=== PATIENT | male | born 1935 | race Caucasian/White ===

== ENCOUNTER 2020-06-15 22:49 | Inpatient (IN) | payer MEDICARE, MEDICAID ==
[~2020-06-15] VITALS: Ht 185 cm; Wt 74.2 kg
--- NOTE | 2020-06-16 02:04 | NUR ---
JUANY ZEPEDA admitted to room CU10-1, with an admitting diagnosis of CHF, COPD, PNA on 06/16/20 from [facility], accompanied by EMS staff.JUANY ZEPEDA introduced to surroundings, call light, bed controls, phone, TV, temperature control, lights, meal times, smoking policy, visitor policy, side rail policy, bathrooms and showers. Patient Rights given to patient in the handbook. JUANY ZEPEDA verbalizes understanding that [facility] is not responsible for the loss or damage to any personal effects or valuables that are kept in the patients possession during their hospitalization. The following Patient Care Plans were discussed with the pt: Discharge Planning, activity,diet, and admission information. JUANY ZEPEDA verbalizes understanding of Interdisciplinary Patient Education. Patient and/or family were informed about the Rapid Response Team and its purpose.
[2020-06-16 02:37] LABS: ABG OXYGEN SATURATION 94 % (94-100); ABG PCO2 33 MMHG (35-45); ABG PH 7.45 (7.37-7.43); ABG PO2 63 MMHG (79-93); ABG TCO2 23.4 MMOL/L (21.0-31.0)
[2020-06-16 02:39] LABS: ALLENS TEST YES-POS; INSPIRED O2 15L; PATIENT TEMP 36.8; VENTILATOR NO
[2020-06-16 03:17] VITALS: BP 141/65
[2020-06-16 03:17] LABS: BASOPHILS % (AUTO) 0 % (0-10); EOSINOPHILS % (AUTO) 0 % (0-10); HEMATOCRIT 26 % (40-54); HEMOGLOBIN 8.7 g/dL (13.3-17.7); LYMPHOCYTES # (AUTO) 0.7 10^3/uL (1.0-4.0); LYMPHOCYTES % (AUTO) 9 % (12-44); MEAN CORPUSCULAR HEMOGLOBIN 34 pg (25-34); MEAN CORPUSCULAR HGB CONC 34 g/dL (32-36); MEAN CORPUSCULAR VOLUME 100 fL (80-99); MEAN PLATELET VOLUME 9.8 fL (9.0-12.2); MONOCYTES # (AUTO) 0.1 10^3/uL (0.0-1.0); MONOCYTES % (AUTO) 1 % (0-12); NEUTROPHILS # (AUTO) 7.2 10^3/uL (1.8-7.8); NEUTROPHILS % (AUTO) 89 % (42-75); PLATELET COUNT 166 10^3/uL (130-400); WHITE BLOOD COUNT 8.1 10^3/uL (4.3-11.0)
[2020-06-16 03:26] VITALS: BP 141/65
[2020-06-16 03:31] LABS: ALBUMIN 3.5 GM/DL (3.2-4.5); POTASSIUM 4.1 MMOL/L (3.6-5.0)
[2020-06-16 03:32] LABS: CALCIUM 8.4 MG/DL (8.5-10.1)
[2020-06-16 03:34] LABS: TOTAL PROTEIN 6.9 GM/DL (6.4-8.2)
[2020-06-16 03:37] LABS: CREATININE SERUM 1.98 MG/DL (0.60-1.30); PHOSPHORUS 2.5 MG/DL (2.3-4.7)
[2020-06-16 03:40] LABS: MAGNESIUM 2.1 MG/DL (1.6-2.4)
--- NOTE | 2020-06-16 04:15 | NUR ---
Critical Troponin called to in E ICU, order to call legal examiner. Dr Woods notified. Order for Plavix 75mg and Aspirin 81mg now if okay with Dr Villanueva. Call to Dr Villanueva, she does NOT want to administer Asa and Plavix at this time. Order to FOB stools.
[2020-06-16] MEDS: POTASSIUM CL 10MEQ/50ML IVPB 50 ML IV SCH (05:55)
[2020-06-16] MEDS: MAGNESIUM 1 GM/100 ML IVPB 100 ML IV SCH (05:55)
[2020-06-16] MEDS: KCL 20 MEQ TAB (K-DUR) PO SCH (05:55)
--- NOTE | 2020-06-16 06:24 | Diagnostic Imaging Report ---
INDICATION: Dyspnea. No previous for comparison. FINDINGS: There is consolidated infiltrate in the right lower lobe. There are increased interstitial and groundglass infiltrates throughout both lungs. The heart is enlarged. Median sternotomy changes. Small bilateral pleural effusions. IMPRESSION: 1. Findings are consistent with mild congestive failure with superimposed right lower lobe pneumonia. Dictated by: Dictated on workstation # [id number]
--- NOTE | 2020-06-16 06:59 | Pulmonary Consultation ---
History of Present Illness History of Present Illness Date Seen by Provider: Jun 16, 2020 Time Seen by Provider: 06:58 Date of Admission Allergies and Home Medications Allergies Coded Allergies: Jyscklr-Sfa-Bnk Reductase Inhibitor (Verified Allergy, Severe, Break soft tissue down, 06/16/20) Past Wxpyrgo-Uehejg-Wojshu Hx Immunizations Up To Date Date of Pneumonia Vaccine: Apr 27, 2016 Date of Influenza Vaccine: May 28, 2020 Family Medical History Cardiovascular disease 19 FATHER, , Onset:Unknown Dementia G8 BROTHER, Onset:Unknown FH: stroke G8 SISTER, , Onset:Unknown Sepsis Event Evaluation Height, Weight, BMI Height: '" Weight: lbs. oz. kg; 21.32 BMI Method: Exam Exam Vital Signs Date Time Temp Pulse Resp B/P (MAP) Pulse Ox O2 Delivery O2 Flow Rate FiO2 06/16/20 06:00 65 140/63 95 NIV Bilevel 40.00 06/16/20 05:00 67 158/72 96 NIV Bilevel 40.00 06/16/20 04:00 63 132/63 96 NIV Bilevel 40.00 06/16/20 03:44 NIV Bilevel 40.00 06/16/20 03:36 NIV Bilevel 50.00 06/16/20 03:35 NIV Bilevel 60.00 06/16/20 03:26 64 14 99 06/16/20 03:17 70 97 06/16/20 03:00 80 164/75 94 OxyMask 15.00 06/16/20 02:45 71 132/63 94 OxyMask 15.00 06/16/20 02:40 95 OxyMask 10.00 06/16/20 02:30 67 138/66 95 OxyMask 15.00 06/16/20 02:15 73 139/67 91 OxyMask 15.00 06/16/20 02:11 75 06/16/20 02:00 36.8 74 142/78 OxyMask 15.00 I & O 06/16/20 07:00 Intake Total 0 ml Output Total 950 ml Balance -950 ml Height & Weight Height: '" Weight: lbs. oz. kg; 21.32 BMI Method: Capillary Refill: Less Than 3 Seconds Results Lab Laboratory Tests 06/16/20 02:45 JACKIE LEWIS DO Jun 16, 2020 06:59
[2020-06-16] MEDS ORDERED: RT-ALBUTEROL INHALER HFA (VENTOLIN HFA) 18 GM IH SCH (09:00)
--- NOTE | 2020-06-16 09:20 | History & Physical-Hospitalist ---
OJRJEGINNA, 06/16/20 0920: History of Present Illness HPI/Chief Complaint is an 85-year-old male who is a direct admit to [facility] from the [place], [place] ED for increasing shortness of breath which has been happening for "a while". He was recently inpatient at [facility] in [place], [place] on 06/07 for acute CHF exacerbation and chest pain. Patient was unable to answer questions due to being on BiPAP. Could only nod yes/no to questioning. Per [facility] records, he was treated at [facility] for the exacerbation with Lasix and tolerated well. While there, he underwent cardiac catheterization done on 06/01/2020 with balloon angioplasty to the VG to the RCA. Source: patient, RN/, old records Date Seen 06/16/20 Time Seen by a Provider: 08:30 Attending Physician Ann Villanueva MD PCP Referring Physician Date of Admission Jun 16, 2020 at 02:04 Home Medications & Allergies Home Medications Reviewed patient Home Medication Reconciliation performed by pharmacy medication reconciliations division order technician and/or nursing. Patients Allergies have been reviewed. Allergies Allergies Coded Allergies Ryooyuh-Tdt-Llk Reductase Inhibitor (Verified Allergy, Severe, Break soft tissue down, 06/16/20) Past Ekdbreu-Usngmd-Eyqjnd Hx Patient Social History Alcohol Use: Occasionally Uses (2 cans/week) Alcohol Beverage of Choice: Beer Recreational Drug Use: Yes Drug of Choice: hx of methamphetamine per [facility] report Smoking Status: Current Everyday Smoker Immunizations Up To Date Date of Pneumonia Vaccine: Apr 27, 2016 Date of Influenza Vaccine: May 28, 2020 Past Medical History Surgeries: Abdominal (hernia repair, unknown location), CABG, Coronary Stent Respiratory: COPD Cardiac: Atrial Fibrillation (on Eliquis), Coronary Artery Disease, Hypertension, Valvular Heart Disease (aortic stenosis per [facility]) HFpEF CKD4 Family History Cardiovascular disease 19 FATHER, , Onset:Unknown Dementia G8 BROTHER, Onset:Unknown FH: stroke G8 SISTER, , Onset:Unknown Heart Disease (2 brothers, 1 with [place]), Cancer (lung cancer in mother) Review of Systems Constitutional: No malaise, No weakness EENTM: nose congestion; No throat pain Respiratory: cough, short of breath Cardiovascular: No chest pain, No palpitations Gastrointestinal: No abdominal pain, No nausea, No vomiting Genitourinary: No dysuria, No hematuria Musculoskeletal: joint pain; No muscle pain Skin: No dryness, No rash Psychiatric/Neurological: Denies Numbness, Denies Tingling Physical Exam Physical Exam Vital Signs Vital Signs - First Documented 06/16/20 06/16/20 06/16/20 06/16/20 02:00 02:15 03:26 09:00 Temp 36.8 Pulse 74 Resp 14 B/P (MAP) 142/78 Pulse Ox 91 O2 Delivery OxyMask O2 Flow Rate 15.00 FiO2 40 Capillary Refill : Less Than 3 Seconds Height, Weight, BMI Height: '" Weight: lbs. oz. kg; 21.32 BMI Method: General Appearance: WD/WN, Chronically ill, Mild Distress Eyes: Bilateral Eye PERRL, Bilateral Eye EOMI HEENT: No Pale Conjunctivae (L), No Pale Conjunctivae (R) Neck: Non Tender, Supple Respiratory: Lungs Clear, Normal Breath Sounds Cardiovascular: Regular Rate, Rhythm, Normal Peripheral Pulses, Systolic Murmur (aortic stenosis) Gastrointestinal: Normal Bowel Sounds, Non Tender, Soft Extremity: Normal Capillary Refill, No Pedal Edema Neurologic/Psychiatric: Alert, Oriented x3, Normal Mood/Affect Skin: Normal Color, Warm/Dry Results Results/Procedures Labs Laboratory Tests 06/16/20 02:45 Patient resulted labs reviewed. Imaging: Reviewed Imaging Report Imaging Date of Exam:06/16/20 CHEST 1 VIEW, AP/PA ONLY INDICATION: Dyspnea. No previous for comparison. FINDINGS: There is consolidated infiltrate in the right lower lobe. There are increased interstitial and groundglass infiltrates throughout both lungs. The heart is enlarged. Median sternotomy changes. Small bilateral pleural effusions. IMPRESSION: 1. Findings are consistent with mild congestive failure with superimposed right lower lobe pneumonia. Dictated on workstation # [id number] Dict: 06/16/20621 Trans: 06/16/20 0623 ANITRA [id number] Interpreted by: MICHELLE LANZA MD Electronically signed by: Assessment/Plan Assessment and Plan 1. Acute respiratory failure secondary to COPD exacerbation, overlying RLL pneumonia, and acute CHF exacerbation * Patient requiring BiPAP with FiO2 40%, currently satting mid-90s * Baseline O2 of 4L NC * Started on albuterol Q2H PRN and fluticasone * Received azithromycin and rocephin at [facility] and will restart here * CXR revealed mild congestive failure with RLL pneumonia * Pulmonology consulted, appreciate their assistance * Cardiology consulted, appreciate their assistance * COVID negative * Flu negative * Starting lasix to diurese * Daily weights 2. Elevated troponin and coronary artery disease * Troponin at [facility] 0.507 * Trended while here -- 0.461, 0.514 * EKG revealed NSR at [facility] * Cardiology will be consulted, appreciate their assistance * Stop ASA and plavix due to anemia and possible GI bleed 3. Paroxysmal atrial fibrillation * CHADsVASc 5 * HASBLED 4 * On Eliquis BID, will hold due to anemia and possible GI bleed * Tele * Consulting cardiology as above, appreciate their assistance 4. HFpEF, EF 55% * Per [facility] history, patient has HFpEF 55% on recent echo 06/01/2020 * Cardiology reports from recent [facility] hospitalization * Echo ordered 5. Hypertension * Holding home medications 6. CKD4 * Hx revealed CKD4 per [facility] * GFR here 33 * Renally dose all medications * Avoid nephrotoxic agents Diet: npo FULL CODE PPx: holding Eliquis, SCDs for now Clinical Quality Measures DVT/VTE Risk/Contraindication: Risk Factor Score Per Nursin RFS Level Per Nursing on Admit: 4+=Very High MARIEL LAZO MD 06/16/20 1436: Past Uwyddih-Tvjerf-Hqthpx Hx Past Med/Social Hx: Reviewed Nursing Past Med/Soc Hx Family History Cardiovascular disease 19 FATHER, , Onset:Unknown Dementia G8 BROTHER, Onset:Unknown FH: stroke G8 SISTER, , Onset:Unknown Assessment/Plan Admission Diagnosis Acute respiratory failure Admission Status: Inpatient Order (span 2 midnights) Reason for Inpatient Admission: see below Assessment and Plan Pt was admitted for multifactorial respiratory failure. He is currently on BiPAP and doing well. Will continue IV abx, add IV diuresis. Cardiology and Pulm consulted. Echo pending. Monitor closely. Given history of severe aortic stenosis, CAD s/p CABG with recent angioplasty, and acute respiratory failure prognosis is guarded. I did discuss goals of care with patient and he reports he would like to remain a Full Code. Diagnosis/Problems Diagnosis/Problems (1) Acute respiratory failure Qualifiers: Respiratory failure complication: hypoxia Qualified Codes: J96.01 - Acute respiratory failure with hypoxia (2) CAD (coronary artery disease) Status: Acute Qualifiers: Coronary Disease-Associated Artery/Lesion type: bypass graft [place] vs. transplanted heart: [place] heart Associated angina: without angina Qualified Codes: I25.810 - Atherosclerosis of coronary artery bypass graft(s) without angina pectoris (3) CKD (chronic kidney disease) Status: Chronic Qualifiers: Chronic kidney disease stage: stage 4 (severe) Qualified Codes: N18.4 - Chronic kidney disease, stage 4 (severe) (4) Counseling regarding end of life decision making Status: Acute (5) Essential (primary) hypertension Status: Chronic (6) NSTEMI (non-ST elevated myocardial infarction) Status: Acute Supervisory-Addendum Brief Verification & Attestation Participated in pt care: history, MDM, physical Personally performed: exam, history, MDM, supervision of care Care discussed with: Medical Student Procedures: n/a Results interpretation: Verified all documentation Verification and Attestation of Medical Student E/M Service A medical student performed and documented this service in my presence. I reviewed and verified all information documented by the medical student and made modifications to such information, when appropriate. I personally performed the physical exam and medical decision making. Mariel Lazo, Jun 16, 2020,14:40 GINNA RECINOS, Jun 16, 2020 09:20 MARIEL LAZO MD Jun 16, 2020 14:36
[2020-06-16] MEDS ORDERED: AZITHROMYCIN INJECTION 500 MG in NS (IVPB) 250 ML IV ONE (10:15)
[2020-06-16] MEDS ORDERED: FUROSEMIDE 40 MG/4 ML INJ (LASIX) IVP ONE (10:45)
[2020-06-16] MEDS: cefTRIAXone FOR IV USE 1,000 MG in WATER (STERILE) FOR INJECTION 10 ML IV SCH (10:59)
[2020-06-16 11:04] VITALS: BP 148/71
[2020-06-16] MEDS: RT-ALBUTEROL INHALER HFA (VENTOLIN HFA) 18 GM IH SCH ×4 (11:04→21:01)
[2020-06-16] MEDS ORDERED: RT-ALBUTEROL INHALER HFA (VENTOLIN HFA) 18 GM IH PRN (12:00)
[2020-06-16 12:15] LABS: BILIRUBIN,URINE NEGATIVE (NEGATIVE); CLARITY,URINE CLEAR; COLOR,URINE YELLOW; GLUCOSE, URINE (UA) NEGATIVE (NEGATIVE); KETONES,URINE NEGATIVE (NEGATIVE); LEUKOCYTE ESTERASE ,URINE NEGATIVE (NEGATIVE); NITRITE,URINE NEGATIVE (NEGATIVE); PH,URINE 5.5 (5-9); PROTEIN,URINE 1+ (NEGATIVE)
[2020-06-16 12:28] LABS: BACTERIA,URINE TRACE /HPF; SQUAMOUS EPITHELIAL CELL,UR 0-2 /HPF
--- NOTE | 2020-06-16 12:46 | Consultation-Cardiology ---
HPI-Cardiology Cardiology Consultation Date of Consultation 06/16/20 Date of Admission Time Seen by Provider: 08:30 Indication: Chest pain, dypsnea HPI Patient is an 85 y/o male with hisotry of CAD with CABG, PAF, , oxygen dependent COPD. Transferred from [place], [place] with complaints and chest pain and increased dyspnea. Patient was hospitalized earlier this month at [facility]. [facility] rtial records from [facility] show patient was there with AE COPD, chest pain. Underwent cardiac catheterization done on 06/01/2020 with balloon angioplasty to the VG to the RCA. Reports he was improving at home, and then developed chest pain and increased dyspnea last night. W/u done showing RLL pneumonia, elevated BNP, mildly elevated troponin. Underwent 2D Echo done at [facility] showing severe and planning to undergo valve replacement with Dr. Smallwood in the near future. Currently denies any chest pain. Continues to have dyspnea and is currently on Bipap. 85 years old gentleman with history of coronary artery disease, CABG, recent intervention with laser atherectomy and balloon angioplasty to the vein graft to the right coronary artery, severe aortic valve stenosis and severe mitral regurgitation with congestive heart failure. Started to have increase in shortness of breath and reported some chest discomfort. Came into the emergency room and admitted, was noted to have pneumonia and in respiratory failure maintained on BiPAP at this point. On my evaluation he denied any active chest pain, still having mild dyspnea but reporting significant improvement. Denied any fever or chills. No syncope or near syncopal episodes Home Medications & Allergies Allergies: Coded Allergies: Zbtssjj-Tui-Ydm Reductase Inhibitor (Verified Allergy, Severe, Break soft tissue down, 06/16/20) Home Medication List Reviewed: Yes DBA-Hqhlym-Yycxhf Hx Patient Social History Marital Status: Alcohol Use: Occasionally Uses (2 cans/week) Recreational Drug Use: Yes Drug of Choice: hx of methamphetamine per [facility] report Smoking Status: Current Everyday Smoker Immunizations Up To Date Date of Pneumonia Vaccine: Apr 27, 2016 Date of Influenza Vaccine: May 28, 2020 Past Medical History CAD, PAF, COPD, , CKD, HTN, HLP Family Medical History Significant Family History: Heart Disease (2 brothers, 1 with [place]), Cancer (lung cancer in mother) Family History: Cardiovascular disease 19 FATHER, , Onset:Unknown Dementia G8 BROTHER, Onset:Unknown FH: stroke G8 SISTER, , Onset:Unknown Review of Systems-General Review of Systems Constitutional: see HPI, malaise, weakness EENTM: see HPI, no symptoms reported, nose congestion; No throat pain Respiratory: see HPI, cough, dyspnea on exertion; No hemoptysis; orthopnea; No phlegm; short of breath; No stridor, No wheezing, No other Cardiovascular: see HPI, chest pain; No edema; Hx of Intervention; No palpitations, No syncope; vascular heart diseas; No other Gastrointestinal: see HPI; No abdominal pain, No nausea, No vomiting Genitourinary: see HPI; No dysuria, No hematuria Musculoskeletal: see HPI, joint pain; No muscle pain Skin: see HPI; No dryness, No rash Psychiatric/Neurological: See HPI; Denies Numbness, Denies Tingling Reviewed Test Results Reviewed Test Results Lab Laboratory Tests 06/16/20 02:25: Blood Gas Puncture Site RIGHT RADIAL, Blood Gas Patient Temperature 36.8, Arterial Blood pH 7.45H, Arterial Blood Partial Pressure CO2 33L, Arterial Blood Partial Pressure O2 63L, Arterial Blood HCO3 22L, Arterial Blood Total CO2 23.4, Arterial Blood Oxygen Saturation 94, Arterial Blood Base Excess -1.0, Delbert Test YES-POS, Blood Gas Ventilator Setting NO, Blood Gas Inspired Oxygen 15L, Coronavirus 2019 (LILIYA) Negative 06/16/20 02:45: White Blood Count 8.1, Red Blood Count 2.58L, Hemoglobin 8.7L, Hematocrit 26L, Mean Corpuscular Volume 100H, Mean Corpuscular Hemoglobin 34, Mean Corpuscular Hemoglobin Concent 34, Red Cell Distribution Width 13.1, Platelet Count 166, Mean Platelet Volume 9.8, Immature Granulocyte % (Auto) 1, Neutrophils (%) (Auto) 89H, Lymphocytes (%) (Auto) 9L, Monocytes (%) (Auto) 1, Eosinophils (%) (Auto) 0, Basophils (%) (Auto) 0, Neutrophils # (Auto) 7.2, Lymphocytes # (Auto) 0.7L, Monocytes # (Auto) 0.1, Eosinophils # (Auto) 0.0, Basophils # (Auto) 0.0, Immature Granulocyte # (Auto) 0.1, Sodium Level 138, Potassium Level 4.1, Chloride Level 106, Carbon Dioxide Level 20L, Anion Gap 12, Blood Urea Nitrogen 37H, Creatinine 1.98H, Estimat Glomerular Filtration Rate 32, BUN/Creatinine Ratio 19, Glucose Level 140H, Calcium Level 8.4L, Corrected Calcium 8.8, Phosphorus Level 2.5, Magnesium Level 2.1, Total Bilirubin 1.0, Aspartate Amino Transf (AST/SGOT) 22, Alanine Aminotransferase (ALT/SGPT) 16, Alkaline Phosphatase 64, Troponin I 0.461*H, B-Type Natriuretic Peptide 2887.6H, Total Protein 6.9, Albumin 3.5 06/16/20 08:25: Troponin I 0.514*H, Procalcitonin 0.91H 06/16/20 11:00: 06/16/20 11:45: Urine Color YELLOW, Urine Clarity CLEAR, Urine pH 5.5, Urine Specific [place] 1.020, Urine Protein 1+H, Urine Glucose (UA) NEGATIVE, Urine Ketones NEGATIVE, Urine Nitrite NEGATIVE, Urine Bilirubin NEGATIVE, Urine Urobilinogen 0.2, Urine Leukocyte Esterase NEGATIVE, Urine RBC (Auto) NEGATIVE, Urine RBC NONE, Urine WBC NONE, Urine Squamous Epithelial Cells 0-2, Urine Crystals NONE, Urine Bacteria TRACE, Urine Casts NONE, Urine Mucus NEGATIVE, Urine Culture Indicated NO Microbiology 06/16/20 Influenza Types A,B Antigen (CARRIE) - Final, Complete ECG Impression ECG Initial ECG Rhythm: Normal Sinus Physical Exam Physical Exam Vital Signs Vital Signs - First Documented 06/16/20 06/16/20 06/16/20 06/16/20 02:00 02:15 03:26 09:00 Temp 36.8 Pulse 74 Resp 14 B/P (MAP) 142/78 Pulse Ox 91 O2 Delivery OxyMask O2 Flow Rate 15.00 FiO2 40 Capillary Refill : Less Than 3 Seconds Height, Weight, BMI Height: '" Weight: lbs. oz. kg; 21.32 BMI Method: General Appearance: WD/WN, Chronically ill, Mild Distress HEENT: PERRL/EOMI, TMs Normal; No Pale Conjunctivae (L), No Pale Conjunctivae (R) Neck: Non Tender, Supple Respiratory: Chest Non Tender, Crackles, Decreased Breath Sounds Cardiovascular: Regular Rate, Rhythm, Normal Peripheral Pulses, Systolic Murmur (aortic stenosis) Gastrointestinal: Normal Bowel Sounds, Non Tender, Soft Extremity: Normal Capillary Refill, No Pedal Edema Neurologic/Psychiatric: Alert, Oriented x3, Normal Mood/Affect Skin: Normal Color, Warm/Dry A/P-Cardiology Admission Diagnosis Chest pain Non-ST elevation myocardial infarction Acute respiratory failure Acute congestive heart failure Assessment/Plan Chest pain, acute non-ST elevation myocardial infarction, mild elevation in troponin level probably a combination of small vessel coronary artery disease and severe hypoxemia. Conservative management is recommended. Restart aspirin and Plavix and continue to monitor Coronary artery disease, history of CABG, status post recent laser atherectomy and balloon angioplasty to the vein graft to the right coronary artery done in [facility] earlier this month. Continue to monitor Acute respiratory failure, maintained on BiPAP, combination of congestive heart failure and possible pneumonia Congestive heart failure, acute on chronic left ventricular systolic dysfunction, started on diuretics and monitor tolerance and response. Restart home medications Severe aortic valve stenosis, severe mitral regurgitation with pulmonary hypertension, has been seen and followed with Dr. velez for possible aortic valve replacement surgery with possible mitral valve repair Paroxysmal atrial fibrillation, was on oral anticoagulation, currently on hold. Continue to monitor H&H Anemia, questionable GI bleed. Continue to monitor H&H closely, transfuse as needed Acute renal insufficiency, history of chronic kidney disease stage III. Continue to monitor renal function Patient was seen and evaluated with Rosanne, examination performed, management plan was discussed, agree with the current scribed note, I made few changes to the note using Italic font I have seen and evaluated the patient with Rosanne, note modification were done as described above Clinical Quality Measures DVT/VTE Risk/Contraindication: Risk Factor Score Per Nursin RFS Level Per Nursing on Admit: 4+=Very High ROSANNE MYERS Jun 16, 2020 12:46 BART MANN MD Jun 16, 2020 13:49
[2020-06-16] MEDS ORDERED: FUROSEMIDE 40 MG/4 ML INJ (LASIX) IVP NR (14:00)
--- NOTE | 2020-06-16 14:03 | NUR ---
THIS NURSE CLARIFIED WITH DR MANN PT IS TO GET ANOTHER 40 MG OF LAXIS IV.
[2020-06-16] MEDS: ASPIRIN E.C. 81 MG (ECOTRIN) TAB PO SCH (14:15)
[2020-06-16] MEDS: PANTOPRAZOLE 40 MG (PROTONIX) TAB PO SCH (14:15)
[2020-06-16] MEDS: CLOPIDOGREL 75 MG (PLAVIX) TABLET PO SCH (14:15)
[2020-06-16 14:52] LABS: POTASSIUM 3.9 MMOL/L (3.6-5.0)
[2020-06-16 14:54] LABS: CALCIUM 8.4 MG/DL (8.5-10.1); HEMOGLOBIN 9.2 g/dL (13.3-17.7); MEAN PLATELET VOLUME 9.9 fL (9.0-12.2); WHITE BLOOD COUNT 7.1 10^3/uL (4.3-11.0)
[2020-06-16 14:58] LABS: CREATININE SERUM 2.05 MG/DL (0.60-1.30)
[2020-06-16 15:07] VITALS: BP 152/68
[2020-06-16] MEDS: NITROGLYCERIN 0.4 MG SL TABS BTL 25'S SL PRN ×2 (15:23→15:33)
--- NOTE | 2020-06-16 15:30 | NUR ---
1506-THIS NURSE NOTIFIED DR MANN PT IS C/O CHEST PAIN 7/10 TO HIS LEFT CHEST. PT FEELS SOA. NURSE PUT THE PT BACK ON BIPAP. PT DENIES NAUSEA. BP IS 152/86 AND HIS HEART RATE IS 96. TROPONIN PENDING. ORDERS GIVEN FOR EKG AND NITRO. SEE ORDER HX. DR MANN WILL COME SEE PT. 1530-DR MANN AT BEDSIDE. DR MANN REVIEWED EKG. ORDER GIVEN FOR NITRO PASTE. SEE ORDER HX. WILL CONTINUE TO MONITOR.
[2020-06-16] MEDS: NITROGLYCERIN 2% OINT 1 GM UNIT DOSE PACKET TOP SCH ×3 (15:37→23:49)
[2020-06-16 17:37] VITALS: BP 152/68
[2020-06-16] MEDS: ADVAIR HFA 115/21 MCG INHALER 8 GM IH SCH (21:01)
--- NOTE | 2020-06-16 23:49 | NUR ---
00 dose of Nitro paste held at this time. Last administration 2.5hrs prior.
[2020-06-17] MEDS: RT-ALBUTEROL INHALER HFA (VENTOLIN HFA) 18 GM IH SCH ×6 (03:22→23:02)
[2020-06-17 03:23] VITALS: BP 135/68
[2020-06-17 03:50] LABS: ABG BASE EXCESS 0.8 MMOL/L (-2.5-2.5); ABG OXYGEN SATURATION 93 % (94-100); ABG PCO2 33 MMHG (35-45); ABG PH 7.48 (7.37-7.43); ABG PO2 62 MMHG (79-93); ABG TCO2 25.1 MMOL/L (21.0-31.0)
[2020-06-17 04:10] LABS: ALLENS TEST POS; INSPIRED O2 21%
[2020-06-17 04:11] LABS: PATIENT TEMP 36.6; VENTILATOR NO
--- NOTE | 2020-06-17 04:30 | Pulmonary Progress Note ---
LUCA GARCIA MED STUDENT 06/17/20 0430: Subjective Date Seen by a Provider: Jun 17, 2020 Time Seen by a Provider: 04:24 Subjective/Events-last exam Mr. Caal is an 85 y/o male presenting with a CC of SoB that began 2 days prior. This has happened 3 times within the past month, and is associated with his CHF. He was given Lasix previously to relieve sx. He sees Dr. Leahy at [facility] in [place] and will have a valve replacement surgery soon. The previous two times this happened he was hospitalized for 6 days and 4 days. He also admits to chest pain, which he rates at a 6-7/10 at its worst, and which hovers around 4-5/10. Pain is brought about by activity, and resting did not help. He was transferred from [facility] to [facility] yesterday. He also states that he is good about taking his medications Smoking- working on quitting, currently down to 4cig/day All: Statins- myopathy Review of Systems General: Chills Pulmonary: Other (denies SoB and wheezing) Cardiovascular: No: Chest Pain Gastrointestinal: No: Nausea Sepsis Event Evaluation Height, Weight, BMI Height: '" Weight: lbs. oz. kg; 21.32 BMI Method: Exam Exam Vital Signs Date Time Temp Pulse Resp B/P (MAP) Pulse Ox O2 Delivery O2 Flow Rate FiO2 06/17/20 04:00 66 26 115/56 92 Nasal Cannula 5.00 06/17/20 03:46 Nasal Cannula 5.00 06/17/20 03:39 NIV Bilevel 30.00 06/17/20 03:30 36.6 NIV Bilevel 21.00 06/17/20 03:23 68 17 97 30.00 06/17/20 03:00 61 17 135/68 93 NIV Bilevel 30.00 06/17/20 02:00 62 14 139/77 96 NIV Bilevel 30.00 06/17/20 01:00 64 16 131/63 97 NIV Bilevel 30.00 06/17/20 00:38 67 06/17/20 00:00 71 33 138/67 97 NIV Bilevel 30.00 06/16/20 23:00 75 24 105/81 96 NIV Bilevel 30.00 06/16/20 22:00 76 11 133/66 97 NIV Bilevel 30.00 06/16/20 21:35 NIV Bilevel 30.00 06/16/20 21:04 92 Nasal Cannula 3.00 06/16/20 21:03 92 Nasal Cannula 3.00 06/16/20 21:00 81 13 133/72 92 Nasal Cannula 4.00 06/16/20 20:00 95 14 131/66 95 Nasal Cannula 4.00 06/16/20 20:00 95 Nasal Cannula 4.00 06/16/20 19:35 36.8 98 137/70 Nasal Cannula 4.00 06/16/20 19:17 85 06/16/20 19:00 75 17 137/70 94 06/16/20 18:00 75 124/68 96 Nasal Cannula 4.00 06/16/20 17:37 36.8 92 95 30 06/16/20 17:10 92 Nasal Cannula 4.00 06/16/20 17:00 90 137/67 92 NIV Bilevel 30.00 06/16/20 16:15 36.8 06/16/20 16:00 71 128/60 96 NIV Bilevel 30.00 06/16/20 15:07 92 22 95 30.00 06/16/20 15:05 NIV Bilevel 30.00 06/16/20 15:00 94 131/61 89 Nasal Cannula 4.00 06/16/20 14:10 Nasal Cannula 4.00 06/16/20 14:00 78 161/86 95 Nasal Cannula 3.00 06/16/20 13:48 92 Nasal Cannula 4.00 06/16/20 13:20 Nasal Cannula 3.00 06/16/20 13:19 93 Nasal Cannula 3.00 06/16/20 13:00 68 152/72 97 NIV Bilevel 30.00 06/16/20 12:40 67 06/16/20 12:00 69 130/62 97 NIV Bilevel 30.00 06/16/20 12:00 37.5 06/16/20 11:04 70 15 95 30.00 06/16/20 11:00 75 132/63 93 NIV Bilevel 30.00 06/16/20 10:10 97 NIV Bilevel 30.00 06/16/20 10:00 68 142/67 96 NIV Bilevel 40.00 06/16/20 09:00 98 NIV Bilevel 40 06/16/20 09:00 67 138/84 99 NIV Bilevel 40.00 06/16/20 08:15 79 18 94 40.00 06/16/20 08:00 68 134/64 96 NIV Bilevel 40.00 06/16/20 07:00 73 139/65 96 NIV Bilevel 40.00 06/16/20 06:42 69 06/16/20 06:00 65 140/63 95 NIV Bilevel 40.00 06/16/20 05:00 67 158/72 96 NIV Bilevel 40.00 I & O 06/17/20 07:00 Intake Total 935 ml Output Total 3025 ml Balance -2090 ml Height & Weight Height: '" Weight: lbs. oz. kg; 21.32 BMI Method: General Appearance: No Apparent Distress, WD/WN, Chronically ill, Mild Distress HEENT: PERRL/EOMI, TMs Normal; No Pale Conjunctivae (L), No Pale Conjunctivae (R) Neck: Normal Inspection, Non Tender, Supple; No JVD Respiratory: Chest Non Tender, Crackles, Decreased Breath Sounds Cardiovascular: Regular Rate, Rhythm, Normal Peripheral Pulses, Systolic Murmur (aortic stenosis, 2/6) Capillary Refill: Less Than 3 Seconds Peripheral Pulses: 2+ Dorsalis Pedis (R), 2+ Left Dors-Pedis (L); 3+ Radial Pulses (R), 3+ Radial Pulses (L) Gastrointestinal: normal bowel sounds, non tender, soft, no pulsatile mass Extremity: Normal Capillary Refill, No Pedal Edema Neurologic/Psychiatric: Alert, Oriented x3, Normal Mood/Affect Skin: Normal Color, Warm/Dry Results Lab Laboratory Tests 06/16/20 02:45 06/16/20 14:35 Assessment/Plan Assessment/Plan CHF - Lasix to diurese -monitor kidney function AFib -eliquis HFpEF -planned valve replacement -F/U at [facility] scheduled Stg 3 kidney failure -GFR 32 -monitor with lasix Anemic H/H of 9.2, 27 JACKIE NARAYAN DO 06/17/20 0532: Subjective Time Seen by a Provider: 05:27 Assessment/Plan Assessment/Plan Acute on chronic respiratory failure -Continue oxygen -BiPAP PRN Systolic CHF -Lasix Oxygen dependent COPD Chest pain with NSTEMI ARF Severe Aortic stenosis HX of methamphetamine use Supervisory-Addendum Brief Verification & Attestation Participated in pt care: history, MDM, physical Personally performed: exam, history, MDM Care discussed with: Medical Student Procedures: n/a Verification and Attestation of Medical Student E/M Service A medical student performed and documented this service in my presence. I reviewed and verified all information documented by the medical student and made modifications to such information, when appropriate. I personally performed the physical exam and medical decision making. Jackie Narayan, Jun 17, 2020,05:35 LUCA GARCIA STUDENT Jun 17, 2020 04:30 JACKIE NARAYAN DO Jun 17, 2020 05:32
[2020-06-17 04:43] LABS: BASOPHILS % (AUTO) 0 % (0-10); EOSINOPHILS % (AUTO) 0 % (0-10); HEMATOCRIT 25 % (40-54); HEMOGLOBIN 8.3 g/dL (13.3-17.7); LYMPHOCYTES # (AUTO) 1.1 10^3/uL (1.0-4.0); LYMPHOCYTES % (AUTO) 10 % (12-44); MEAN CORPUSCULAR HEMOGLOBIN 34 pg (25-34); MEAN CORPUSCULAR HGB CONC 34 g/dL (32-36); MEAN CORPUSCULAR VOLUME 100 fL (80-99); MEAN PLATELET VOLUME 10.2 fL (9.0-12.2); MONOCYTES # (AUTO) 0.8 10^3/uL (0.0-1.0); MONOCYTES % (AUTO) 8 % (0-12); NEUTROPHILS # (AUTO) 8.6 10^3/uL (1.8-7.8); NEUTROPHILS % (AUTO) 81 % (42-75); PLATELET COUNT 197 10^3/uL (130-400); WHITE BLOOD COUNT 10.5 10^3/uL (4.3-11.0)
[2020-06-17 05:00] LABS: CALCIUM 8.3 MG/DL (8.5-10.1); CREATININE SERUM 2.33 MG/DL (0.60-1.30); MAGNESIUM 2.2 MG/DL (1.6-2.4)
[2020-06-17] MEDS: POTASSIUM CL 10MEQ/50ML IVPB 50 ML IV SCH (05:03)
[2020-06-17] MEDS: KCL 20 MEQ TAB (K-DUR) PO SCH (05:03)
[2020-06-17] MEDS: MAGNESIUM 1 GM/100 ML IVPB 100 ML IV SCH (05:03)
[2020-06-17] MEDS: NITROGLYCERIN 2% OINT 1 GM UNIT DOSE PACKET TOP SCH ×4 (05:15→23:43)
--- NOTE | 2020-06-17 07:38 | Diagnostic Imaging Report ---
INDICATION: Dyspnea. Compared 06/16/2020 FINDINGS: Five lobe pulmonary opacities showed improvements at the level of the right lung base and left midlung. No adverse development. Some air trapping chronic. Blunting of the left costophrenic angle is either pleural thickening or tiny left pleural effusion. Sternal wires midline. Heart size stable. IMPRESSION: While five lobe pulmonary opacities are present, overall the appearance of the chest showed mild improvements from the prior with no adverse development. Changes may reflect improvements in edema or pneumonia. Dictated by: Dictated on workstation # [id number]
[2020-06-17] MEDS: ADVAIR HFA 115/21 MCG INHALER 8 GM IH SCH ×2 (08:15→19:21)
--- NOTE | 2020-06-17 08:26 | Progress Note - Hospitalist ---
Subjective HPI/CC On Admission Date Seen by Provider: Jun 17, 2020 Time Seen by Provider: 08:20 is an 85-year-old male who is a direct admit to [facility] from the [place], [place] ED for increasing shortness of breath which has been happening for "a while". He was recently inpatient at [facility] in [place], [place] on 06/07 for acute CHF exac erbation and chest pain. Patient was unable to answer questions due to being on BiPAP. Could only nod yes/no to questioning. Per [facility] records, he was treated at [facility] for the exacerbation with Lasix and tolerated well. While there, he underwent cardiac catheterization done on 06/01/2020 with balloon angioplasty to the VG to the RCA. Subjective/Events-last exam Pt reports doing much better. Off BiPAP currently but wore it overnight. No complaints. Objective Exam Vital Signs Vital Signs Date Time Temp Pulse Resp B/P (MAP) Pulse Ox O2 Delivery O2 Flow Rate FiO2 06/17/20 07:52 35.8 06/17/20 07:00 89 18 132/70 87 Nasal Cannula 5.00 06/16/20 17:37 30 Capillary Refill : Less Than 3 Seconds General Appearance: No Apparent Distress, Chronically ill Respiratory: No Accessory Muscle Use, Decreased Breath Sounds, Other (on 5lpm ) Cardiovascular: Regular Rate, Rhythm, Systolic Murmur Extremity: No Calf Tenderness, No Pedal Edema Neurologic/Psychiatric: Alert, Oriented x3, Normal Mood/Affect Results/Procedures Lab Laboratory Tests 06/16/20 14:35 06/17/20 03:25 Patient resulted labs reviewed. Imaging: Reviewed Imaging Report Assessment/Plan Assessment and Plan Assess & Plan/Chief Complaint 1. Multifactorial acute respiratory failure secondary to COPD exacerbation with RLL pneumonia, and acute CHF exacerbation * Doing much better, transfer to the floor today * Baseline O2 of 4L NC * MAT protocol * Continue IV abx * Pulmonology consulted, appreciate their assistance * Cardiology consulted, appreciate their assistance * COVID negative * Flu negative * Responded well to Lasix, -2.4L yesterday 2. Elevated troponin and coronary artery disease * Troponin relatively stable here * Cardiology consulted, appreciate their assistance- plan for conservative measures * Continue ASA and Plavix * telemetry 3. Paroxysmal atrial fibrillation * On Eliquis BID, previously- likely needs renal dosing * Consulting cardiology as above, appreciate their assistance 4. HFpEF, EF 55% * Echo reveals EF of 45%, grade 1 diastolic dysfunction, with severe stenosis * Cardiology reports from recent [facility] hospitalization 5. Hypertension * Holding home medications 6. CKD4 * Bottle Booth Attendant 2.33, up from yesterday likely due to diuresis * Trend in AM without Lasix * Renally dose all medications * Avoid nephrotoxic agents Diet: Heart Healthy FULL CODE PPx: holding Eliquis, SCDs for now Diagnosis/Problems Diagnosis/Problems (1) Acute respiratory failure Qualifiers: Respiratory failure complication: hypoxia Qualified Codes: J96.01 - Acute respiratory failure with hypoxia (2) CAD (coronary artery disease) Status: Acute Qualifiers: Coronary Disease-Associated Artery/Lesion type: bypass graft [place] vs. transplanted heart: [place] heart Associated angina: without angina Qualified Codes: I25.810 - Atherosclerosis of coronary artery bypass graft(s) without angina pectoris (3) CKD (chronic kidney disease) Status: Chronic Qualifiers: Chronic kidney disease stage: stage 4 (severe) Qualified Codes: N18.4 - Chronic kidney disease, stage 4 (severe) (4) Counseling regarding end of life decision making Status: Acute (5) Essential (primary) hypertension Status: Chronic (6) NSTEMI (non-ST elevated myocardial infarction) Status: Acute Clinical Quality Measures DVT/VTE Risk/Contraindication: Risk Factor Score Per Nursin RFS Level Per Nursing on Admit: 4+=Very High MARIEL RYAN MD Jun 17, 2020 08:26
[2020-06-17] MEDS: AZITHROMYCIN 250 MG TAB (ZITHROMAX) PO SCH (08:54)
[2020-06-17] MEDS: CLOPIDOGREL 75 MG (PLAVIX) TABLET PO SCH (08:54)
[2020-06-17] MEDS: ASPIRIN E.C. 81 MG (ECOTRIN) TAB PO SCH (08:54)
[2020-06-17] MEDS: PANTOPRAZOLE 40 MG (PROTONIX) TAB PO SCH (08:54)
[2020-06-17] MEDS: cefTRIAXone FOR IV USE 1,000 MG in WATER (STERILE) FOR INJECTION 10 ML IV SCH (08:55)
--- NOTE | 2020-06-17 08:59 | Cardiology Progress Note ---
Subjective Date Seen by Provider: Jun 17, 2020 Time Seen by Provider: 08:55 Subjective/Events-last exam Patient is laying down in bed, feeling better today. Denied any active chest pain. Had an episode of chest pain yesterday. Currently on nasal cannula Review of Systems General: No Chills, No Night Sweats, No Fatigue, No Malaise, No Appetite, No Other HEENT: No Head Aches, No Visual Changes, No Eye Pain, No Ear Pain, No Dysphasia, No Sinus Congestion, No Post Nasal Drip, No Sore Throat, No Other Pulmonary: Dyspnea; No Cough, No Pleuritic Chest Pain, No Other Cardiovascular: No: Chest Pain, Palpitations, Orthopnea, Paroxysmal Noc. Dyspnea, Edema, Lt Headedness, Other Objective-Cardiology Exam Last Set of Vital Signs Vital Signs 06/16/20 06/17/20 06/17/20 06/17/20 17:37 07:00 07:52 08:15 Temp 35.8 Pulse 89 Resp 18 B/P (MAP) 132/70 Pulse Ox 93 O2 Delivery Nasal Cannula O2 Flow Rate 6.00 FiO2 30 Capillary Refill : Less Than 3 Seconds I&O Intake and Output 06/17/20 00:00 Intake Total 785 ml Output Total 3225 ml Balance -2440 ml Intake Oral 525 ml IV Total 260 ml Output Urine Total 3225 ml Daily Weight Change No General: Alert, Oriented X3, Cooperative HEENT: Atraumatic, PERRLA Neck: Supple, No JVD, No Thyromegaly Lungs: Normal Air Movement, Other (bilateral rhonchi) Heart: Regular Rate, Normal S1, Normal S2, Other (systolic murmur at the left sternal border) Abdomen: Normal Bowel Sounds, Soft, No Tenderness, No Hepatosplenomegaly, No Masses Extremities: No Clubbing, No Cyanosis, No Edema, Normal Pulses, No Tenderness/Swelling Skin: No Rashes, No Breakdown, No Significant Lesion Neuro: Normal Speech, Normal Tone, Sensation Intact Psych/Mental Status: Mental Status NL, Mood NL Results Lab Laboratory Tests 06/16/20 14:35 06/17/20 03:25 A/P-Cardiology Admission Diagnosis Chest pain Non-ST elevation myocardial infarction Acute respiratory failure Acute congestive heart failure Assessment/Plan Chest pain, acute non-ST elevation myocardial infarction, mild elevation in troponin level probably a combination of small vessel coronary artery disease and severe hypoxemia. Conservative management is recommended. Continue on aspirin and Plavix and monitor. Restart isosorbide. Coronary artery disease, history of CABG, status post recent laser atherectomy and balloon angioplasty to the vein graft to the right coronary artery done in [facility] earlier this month. Continue to monitor Acute respiratory failure, improving, currently on nasal cannula. Continue to monitor Congestive heart failure, acute on chronic left ventricular systolic dysfunction, started on diuretics and monitor tolerance and response. Restart home medications Severe aortic valve stenosis, severe mitral regurgitation with pulmonary hypertension, has been seen and followed with Dr. velez for possible aortic valve replacement surgery with possible mitral valve repair Paroxysmal atrial fibrillation, was on oral anticoagulation, currently on hold. Continue to monitor H&H Anemia, monitor H&H Acute renal insufficiency, history of chronic kidney disease stage III. Continue to monitor renal function Clinical Quality Measures DVT/VTE Risk/Contraindication: Risk Factor Score Per Nursin RFS Level Per Nursing on Admit: 4+=Very High BART MANN MD Jun 17, 2020 08:59
--- NOTE | 2020-06-17 10:45 | Physical Therapy Evaluation ---
PT Evaluation-General Medical Diagnosis Admission Date Jun 16, 2020 at 02:04 Medical Diagnosis: pneumonia/respiratory distress Onset Date: Jun 16, 2020 Therapy Diagnosis Therapy Diagnosis: debility/weakness Precautions Precautions/Isolations: Standard Precautions Referral Physician: [place] Reason for Referral: Evaluation/Treatment Medical History Pertinent Medical History: Atrial Fib, CABG, CAD, Heart Failure, HTN, Smoking Current History Direct admit from OSH secondary SOA Reviewed History: Yes Social History Home: Single Level Current Living Status: Other Family Prior Prior Level of Function SCALE: Activities may be completed with or without assistive devices. 2-Phlncnhmcj-khmuoao completes the activity by him/herself with no assistance from a helper. 5-Set-up or Clean-up Assistance-helper sets up or cleans up; patient completes activity. [place] assists only prior to or following the activity. 4-Supervision or Touching Assistance-helper provides verbal cues and/or touching/steadying and/or contact guard assistance as patient completes activity. Assistance may be provided throughout the activity or intermittently. 3-Partial/Moderate Assistance-helper does LESS THAN HALF the effort. [place] lifts, holds or supports trunk or limbs, but provides less than half the effort. 2-Substantial/Maximal Assistance-helper does MORE THAN HALF the effort. [place] lifts or holds trunk or limbs and provides more than half the effort. 7-Yqkmjpcxi-cdwwww does ALL the effort. Patient does none of the effort to comp lete the activity. Or, the assistance of 2 or more helpers is required for the patient to complete the activity. If activity was not attempted, code reason: 7-Patient Refused. 9-Not Applicable-not attempted and the patient did not perform the activity before the current illness, exacerbation or injury. 10-Not Attempted due to Environmental Limitations-(lack of equipment, weather restraints, etc.). 88-Not Attempted due to Medical Conditions or Safety Concerns. Bed Mobility: 6 Transfers (B,C,W/C): 6 Gait: 6 Stairs: 6 Indoor Mobility (Ambulation): Independent Stairs: Independent Prior Devices Use: None PT Evaluation-Current Subjective Patient agrees to PT. Reports he is feeling better today. Objective Patient Orientation: Normal For Age Attachments: Oxygen ROM/Strength ROM Lower Extremities bilateral LE WFL Strength Lower Extremities 4/5 grossly bilateral LE Integumentary/Posture Integumentary refer to nursing notes Bowel Incontinence: No Bladder Incontinence: No Posture WFL Neuromuscular (Tone, Coordination, Reflexes) grossly intact Sensory Vision: Functional Hearing: Functional Transfers Roll Left to Right (QC): 6 Lying to Sitting/Side of Bed(Q: 6 Sit to Stand (QC): 5 Chair/Hga-mb-Gzhxu Xfer(QC): 5 Gait Does the Patient Walk?: Yes Mode of Locomotion: Wheelchair Anticipated Mode of Locomotion: Walk Walk 10 feet (QC): 5 Distance: 20' Gait Assistive Device: None Comments/Gait Description functional gait sequence Balance Sitting Static: Normal Sitting Dynamic: Normal Standing Static: Normal Standing Dynamic: Normal Assessment/Needs 85 y.o. male, will be seen short term by skilled PT to address functional mobility to ensure safe return to home at maximum LOF. Rehab Potential: Fair PT Senior Care Goals Senior Care Goals PT Senior Care Goals Time Frame: Jun 26, 2020 Roll Left & Right (QC): 6 Sit to Lying (QC): 6 Lying-Sitting on Side/Bed(QC): 6 Sit to Stand (QC): 6 Chair/Dpd-vl-Ssiqe Xfer(QC): 6 Toilet Transfer (QC): 6 Car Transfer (QC): 6 Does the Patient Walk: Yes Walk 10 feet (QC): 6 Walk 50ft with 2 Turns (QC): 6 Walk 150 ft (QC): 6 PT Plan Problem List Problem List: Activity Tolerance Treatment/Plan Treatment Plan: Continue Plan of Care Treatment Plan: Education, Functional Activity [place], Functional Strength, Gait, Safety, Therapeutic Exercise Treatment Duration: Jun 26, 2020 Frequency: 6 times per week Estimated Hrs Per Day: .25 hour per day Time/GCodes Time In: 951 Time Out: 1006 Total Billed Treatment Time: 15 Total Billed Treatment 1 visit EVModC 15 min OREN DIANA PT Jun 17, 2020 10:45
--- NOTE | 2020-06-17 10:55 | NUR ---
Pastoral care visit.
--- NOTE | 2020-06-17 11:58 | NUR ---
REPORT RECEIVED FROM ELIZABETH ALEXANDER
[2020-06-17] MEDS: ISOSORBIDE MONONITRATE 30 MG (IMDUR) TAB PO SCH (12:14)
[2020-06-17] MEDS ORDERED: NITR0.4T42 SL (13:43)
[2020-06-17] MEDS ORDERED: LEVO100T7 PO (13:43)
[2020-06-17] MEDS ORDERED: CITA20TA9 PO (13:43)
[2020-06-17] MEDS ORDERED: HYDR-3923 PO (13:43)
[2020-06-17] MEDS ORDERED: NICO-587 TD (13:43)
[2020-06-17] MEDS ORDERED: CLOP75TA28 PO (13:43)
[2020-06-17] MEDS ORDERED: APIX2.5T PO (13:43)
[2020-06-17] MEDS ORDERED: RT-ALBUINH INH (13:43)
[2020-06-17] MEDS ORDERED: CARV12.53 PO (13:43)
[2020-06-17] MEDS ORDERED: ISOS30TA3 PO (13:43)
[2020-06-17] MEDS ORDERED: AMLO-250 PO (13:43)
[2020-06-17] MEDS ORDERED: ACET325C7 PO (13:45)
--- NOTE | 2020-06-17 13:50 | NUR ---
SPOKE WITH THE PT, WENT THRU THE EXT MED HISTORY AND CALLED JUANIS SOTO TO COMPLETE THE MED REC ON THE PTS CHART THERE WAS A COPY OF HIS DISCHARGE SUMMARY FROM [facility] DATED 06-11-2020. ON THE DISCHARGE SUMMARY IT LISTS PANTOPRAZOLE 40MG BID AND ASPIRIN 81MG HOWEVER PT SAYS HE IS NOT TAKING EITHER OF THESE ON 05-19-2020 LISINOPRIL 10MG #30 WAS FILLED HOWEVER THE PT SAYS THE MEDICATION WAS DISCONTINUED OTC MEDS: TYLENOL
--- NOTE | 2020-06-17 13:58 | NUR ---
MED REC COMPLETE, DR MANN NOTIFIED PER REQUEST.
--- NOTE | 2020-06-17 14:48 | NUR ---
PATIENT DID NOT GET HIS 1400 MDI ALBUTEROL TX DUE TO HIM BEING IN THE SHOWER
[2020-06-17 15:21] VITALS: BP 132/76
[2020-06-17 19:02] VITALS: BP 129/59
[2020-06-17] MEDS: hydrALAZINE (APRESOLINE) 25 MG TAB PO SCH (21:19)
[2020-06-17] MEDS: CARVEDILOL 12.5 MG (COREG) TABLET PO SCH (21:19)
[2020-06-17] MEDS: APIXABAN 2.5 MG (ELIQUIS) TABLET PO SCH (21:19)
[2020-06-17 21:20] VITALS: BP 160/72
[2020-06-17 23:30] VITALS: BP 146/67
--- NOTE | 2020-06-17 23:46 | NUR ---
2340-pt refusing 0000 nitro paste at this time-pt states he has a headache & would like Tylenol for this headache 2345-this rn contacted dr. fajardo about pt request, refusal of the nitro paste, and current vitals. order received for Tylenol
[2020-06-17] MEDS: ACETAMINOPHEN 325 MG TABLET PO PRN (23:54)
[2020-06-18] MEDS: RT-ALBUTEROL INHALER HFA (VENTOLIN HFA) 18 GM IH SCH ×5 (01:41→21:21)
[2020-06-18 05:06] VITALS: BP 137/62
[2020-06-18] MEDS: NITROGLYCERIN 2% OINT 1 GM UNIT DOSE PACKET TOP SCH ×3 (05:08→15:00)
[2020-06-18] MEDS: LEVOTHYROXINE 100 MCG (LEVOTHROID) TAB PO SCH (05:30)
[2020-06-18 05:51] LABS: BASOPHILS % (AUTO) 0 % (0-10); EOSINOPHILS # (AUTO) 0.1 10^3/uL (0.0-0.3); EOSINOPHILS % (AUTO) 1 % (0-10); HEMATOCRIT 24 % (40-54); HEMOGLOBIN 7.8 g/dL (13.3-17.7); LYMPHOCYTES # (AUTO) 1.2 10^3/uL (1.0-4.0); LYMPHOCYTES % (AUTO) 15 % (12-44); MEAN CORPUSCULAR HEMOGLOBIN 34 pg (25-34); MEAN CORPUSCULAR HGB CONC 33 g/dL (32-36); MEAN CORPUSCULAR VOLUME 102 fL (80-99); MEAN PLATELET VOLUME 10.1 fL (9.0-12.2); MONOCYTES # (AUTO) 0.8 10^3/uL (0.0-1.0); MONOCYTES % (AUTO) 10 % (0-12); NEUTROPHILS # (AUTO) 5.8 10^3/uL (1.8-7.8); NEUTROPHILS % (AUTO) 74 % (42-75); PLATELET COUNT 206 10^3/uL (130-400); WHITE BLOOD COUNT 7.8 10^3/uL (4.3-11.0)
[2020-06-18 06:09] LABS: POTASSIUM 3.8 MMOL/L (3.6-5.0)
[2020-06-18 06:10] LABS: CALCIUM 8.1 MG/DL (8.5-10.1)
[2020-06-18 06:14] LABS: PHOSPHORUS 3.2 MG/DL (2.3-4.7)
[2020-06-18 06:15] LABS: CREATININE SERUM 2.11 MG/DL (0.60-1.30)
[2020-06-18 06:17] LABS: MAGNESIUM 2.2 MG/DL (1.6-2.4)
[2020-06-18] MEDS: ADVAIR HFA 115/21 MCG INHALER 8 GM IH SCH ×2 (07:10→21:20)
[2020-06-18 07:50] VITALS: BP 156/68
[2020-06-18] MEDS: CLOPIDOGREL 75 MG (PLAVIX) TABLET PO SCH (09:36)
[2020-06-18] MEDS: AZITHROMYCIN 250 MG TAB (ZITHROMAX) PO SCH (09:36)
[2020-06-18] MEDS: PANTOPRAZOLE 40 MG (PROTONIX) TAB PO SCH (09:37)
[2020-06-18] MEDS: amLODIPine 10 MG (NORVASC) TAB PO SCH (09:37)
[2020-06-18] MEDS: CARVEDILOL 12.5 MG (COREG) TABLET PO SCH ×2 (09:37→21:03)
[2020-06-18] MEDS: ISOSORBIDE MONONITRATE 30 MG (IMDUR) TAB PO SCH (09:37)
[2020-06-18] MEDS: ASPIRIN E.C. 81 MG (ECOTRIN) TAB PO SCH (09:37)
[2020-06-18] MEDS: hydrALAZINE (APRESOLINE) 25 MG TAB PO SCH ×3 (09:37→21:03)
[2020-06-18] MEDS: APIXABAN 2.5 MG (ELIQUIS) TABLET PO SCH ×2 (09:37→21:03)
--- NOTE | 2020-06-18 10:22 | Progress Note - Hospitalist ---
GINNA RECINOS, 06/18/20 1022: Subjective HPI/CC On Admission is an 85-year-old male who is a direct admit to [facility] from the [place], [place] ED for increasing shortness of breath which has been happening for "a while". He was recently inpatient at [facility] in [place], [place] on 06/07 for acute CHF exacerbation and chest pain. Patient was unable to answer questions due to being on BiPAP. Could only nod yes/no to questioning. Per [facility] records, he was treated at [facility] for the exacerbation with Lasix and tolerated well. While there, he underwent cardiac catheterization done on 06/01/2020 with balloon angioplasty to the VG to the RCA. Subjective/Events-last exam Mr. Caal is feeling much better today. He denies any chest pain or shortness of breath. He was ambulating fine yesterday. He is able to eat per usual. No concerns voiced. Objective Exam Vital Signs Vital Signs Date Time Temp Pulse Resp B/P (MAP) Pulse Ox O2 Delivery O2 Flow Rate FiO2 06/18/20 07:50 36.6 62 20 156/68 (97) 94 Nasal Cannula 3.00 06/17/20 14:00 4 Capillary Refill : Less Than 3 SecondsLess Than 3 Seconds General Appearance: No Apparent Distress, WD/WN HEENT: PERRL/EOMI Neck: Non Tender, Supple Respiratory: Lungs Clear, Normal Breath Sounds Cardiovascular: Regular Rate, Rhythm, Normal Peripheral Pulses, Systolic Murmur (aortic stenosis) Gastrointestinal: Normal Bowel Sounds, Non Tender, Soft Extremity: Normal Capillary Refill; No Swelling Neurologic/Psychiatric: Alert, Oriented x3 Skin: Normal Color, Warm/Dry Results/Procedures Lab Laboratory Tests 06/18/20 05:04 Patient resulted labs reviewed. Imaging: Reviewed Imaging Report Assessment/Plan Assessment and Plan Assess & Plan/Chief Complaint 1. Acute respiratory failure secondary to COPD exacerbation, overlying RLL p neumonia, and acute CHF exacerbation * Down to 3L NC at 94% * Baseline O2 of 4L NC * Started on albuterol Q2H PRN and fluticasone * Received azithromycin and rocephin at [facility] and will restart here * CXR revealed mild congestive failure with RLL pneumonia * Pulmonology consulted, appreciate their assistance * Cardiology consulted, appreciate their assistance * COVID negative * Flu negative 2. Elevated troponin and coronary artery disease * Troponin at [facility] 0.507 * Trended while here -- 0.461, 0.514 * EKG revealed NSR at [facility] * Cardiology will be consulted, appreciate their assistance - conservative management at this time * ASA and Plavix started 3. Paroxysmal atrial fibrillation * CHADsVASc 5 * HASBLED 4 * On Eliquis BID, renally dose * Tele * Consulting cardiology as above, appreciate their assistance 4. HFpEF * Echo at [facility] revealed EF 45%, grade I diastolic dysfunction, with severe stenosis * Cardiology reports from recent [facility] hospitalization in chart 5. Hypertension * Starting home medications 6. CKD4 * Hx revealed CKD4 per [facility] * GFR here 33 * Renally dose all medications * Avoid nephrotoxic agents * Creatinine up to 2.33, down to 2.11 06/18 Diet: heart healthy FULL CODE PPx: holding Eliquis, SCDs for now Clinical Quality Measures DVT/VTE Risk/Contraindication: Risk Factor Score Per Nursin RFS Level Per Nursing on Admit: 4+=Very High MARIEL RYAN MD 06/18/201954: Subjective HPI/CC On Admission Date Seen by Provider: Jun 18, 2020 Time Seen by Provider: 19:54 Assessment/Plan Assessment and Plan Assess & Plan/Chief Complaint Pt reports feeling much better today. We discussed possibly discharging home but he does not quite feel ready and is worried he'd come right back. Will hold on DC hopefully for tomorrow if he's still doing as well. Continue his CENA Eliquis. Supervisory-Addendum Brief Verification & Attestation Participated in pt care: history, MDM, physical Personally performed: exam, history, MDM, supervision of care Care discussed with: Medical Student Procedures: n/a Results interpretation: Verified all documentation Verification and Attestation of Medical Student E/M Service A medical student performed and documented this service in my presence. I reviewed and verified all information documented by the medical student and made modifications to such information, when appropriate. I personally performed the physical exam and medical decision making. Mariel Ryan, Jun 18, 2020,19:54 GINNA RECINOS, Jun 18, 2020 10:22 MARIEL RYAN MD Jun 18, 2020 19:55
--- NOTE | 2020-06-18 10:32 | Physical Therapy Daily Note ---
PT Daily Note-Current Subjective Patient agrees to PT. No c/o. Pain Numeric Pain Scale: 0-No Pain Location: No Pain Reported Mental Status Patient Orientation: Normal For Age Attachments: Oxygen (3L) Transfers SCALE: Activities may be completed with or without assistive devices. 1-Bvevyfozjl-hrjznpx completes the activity by him/herself with no assistance from a helper. 5-Set-up or Clean-up Assistance-helper sets up or cleans up; patient completes activity. Eidson assists only prior to or following the activity. 4-Supervision or Touching Assistance-helper provides verbal cues and/or touching/steadying and/or contact guard assistance as patient completes activity. Assistance may be provided throughout the activity or intermittently. 3-Partial/Moderate Assistance-helper does LESS THAN HALF the effort. Eidson lifts, holds or supports trunk or limbs, but provides less than half the effort. 2-Substantial/Maximal Assistance-helper does MORE THAN HALF the effort. Eidson lifts or holds trunk or limbs and provides more than half the effort. 9-Iyrxzipyf-iloxzq does ALL the effort. Patient does none of the effort to complete the activity. Or, the assistance of 2 or more helpers is required for the patient to complete the activity. If activity was not attempted, code reason: 7-Patient Refused. 9-Not Applicable-not attempted and the patient did not perform the activity before the current illness, exacerbation or injury. 10-Not Attempted due to Environmental Limitations-(lack of equipment, weather restraints, etc.). 88-Not Attempted due to Medical Conditions or Safety Concerns. Roll Left & Right (QC): 6 Lying to Sitting/Side of Bed(Q: 6 Sit to Stand (QC): 6 Chair/Roa-hc-Qqdmm Xfer(QC): 6 Gait Training Does the Patient Walk?: Yes Distance: 300' Walk 10 feet (QC): 5 Walk 50 ft with 2 Turns(QC): 5 Walk 150 ft (QC): 5 Gait Assistive Device: FWW kyphotic posture with functional gait sequence Exercises Seated Therapy Exercises: Ankle pumps, Long arc quads, Shoulder Abd Seated Reps: 15 (2 sets) Assessment Patient has mild SOA with quick recovery on 3L O2 NC. Patient is up in chair with needs met. PT Signal Engineer Goals Signal Engineer Goals PT Signal Engineer Goals Time Frame: Jun 26, 2020 Roll Left & Right (QC): 6 Sit to Lying (QC): 6 Lying-Sitting on Side/Bed(QC): 6 Sit to Stand (QC): 6 Chair/Nml-yv-Bgwrv Xfer(QC): 6 Toilet Transfer (QC): 6 Car Transfer (QC): 6 Does the Patient Walk: Yes Walk 10 feet (QC): 6 Walk 50ft with 2 Turns (QC): 6 Walk 150 ft (QC): 6 PT Plan Treatment/Plan Treatment Plan: Continue Plan of Care Treatment Plan: Education, Functional Activity [place], Functional Strength, Gait, Safety, Therapeutic Exercise Treatment Duration: Jun 26, 2020 Frequency: 6 times per week Estimated Hrs Per Day: .25 hour per day Time/GCodes Time In: 910 Time Out: 934 Total Billed Treatment Time: 24 Total Billed Treatment 1 visit FA 15 min EX 9 min OREN DIANA PT Jun 18, 2020 10:32
[2020-06-18] MEDS ORDERED: WATER (STERILE) FOR INJECTION 10 ML ONE (11:21)
[2020-06-18] MEDS ORDERED: cefTRIAXone 1,000 MG IV (ROCEPHIN) VIAL ONE (11:21)
[2020-06-18] MEDS: cefTRIAXone FOR IV USE 1,000 MG in WATER (STERILE) FOR INJECTION 10 ML IV SCH (11:25)
[2020-06-18 11:35] VITALS: BP 142/61
--- NOTE | 2020-06-18 12:45 | NUR ---
Patient's daughter called and reported that RN who cared for patient at [facility] tested positive for COVID. Patient was discharged from [facility] on 06.11.2020. This is out of the 48hr window of exposure since last contact with RN at [employer]. Patient was removed from quarantine. Confirmed with Dr. Lazo and [facility].
--- NOTE | 2020-06-18 13:36 | Cardiology Progress Note ---
Subjective Date Seen by Provider: Jun 18, 2020 Time Seen by Provider: 13:35 Subjective/Events-last exam Patient was seen at bedside sitting comfortably, feeling better. No new complaint Review of Systems General: No Chills, No Night Sweats; Fatigue, Malaise; No Appetite, No Other HEENT: No Head Aches, No Visual Changes, No Eye Pain, No Ear Pain, No Dysphasia, No Sinus Congestion, No Post Nasal Drip, No Sore Throat, No Other Pulmonary: Dyspnea; No Cough, No Pleuritic Chest Pain, No Other Cardiovascular: No: Chest Pain, Palpitations, Orthopnea, Paroxysmal Noc. Dyspnea, Edema, Lt Headedness, Other Objective-Cardiology Exam Last Set of Vital Signs Vital Signs 06/17/20 06/18/20 14:00 11:35 Temp 36.9 Pulse 64 Resp 18 B/P (MAP) 142/61 (88) Pulse Ox 93 O2 Delivery Nasal Cannula O2 Flow Rate 3.00 FiO2 4 Capillary Refill : Less Than 3 SecondsGreater Than 3 Seconds I&O Intake and Output 06/18/20 00:00 Intake Total 920 ml Output Total 1675 ml Balance -755 ml Intake Oral 920 ml Output Urine Total 1675 ml # Voids 2 General: Alert, Oriented X3, Cooperative HEENT: Atraumatic, PERRLA Neck: Supple, No JVD, No Thyromegaly Lungs: Normal Air Movement, Other (bilateral rhonchi) Heart: Regular Rate, Normal S1, Normal S2, Other (systolic murmur at the left sternal border) Abdomen: Normal Bowel Sounds, Soft, No Tenderness, No Hepatosplenomegaly, No Masses Extremities: No Clubbing, No Cyanosis, No Edema, Normal Pulses, No Tenderness/Swelling Skin: No Rashes, No Breakdown, No Significant Lesion Neuro: Normal Speech, Normal Tone, Sensation Intact Psych/Mental Status: Mental Status NL, Mood NL Results Lab Laboratory Tests 06/18/20 05:04 A/P-Cardiology Admission Diagnosis Chest pain Non-ST elevation myocardial infarction Acute respiratory failure Acute congestive heart failure Assessment/Plan Chest pain, acute non-ST elevation myocardial infarction, mild elevation in troponin level probably a combination of small vessel coronary artery disease and severe hypoxemia. Conservative management is recommended. Continue to monitor, feeling better today. Coronary artery disease, history of CABG, status post recent laser atherectomy and balloon angioplasty to the vein graft to the right coronary artery done in [facility] earlier this month. Continue on aspirin and Plavix Status post respiratory failure, improving, currently on nasal cannula. Continue to monitor Congestive heart failure, acute on chronic left ventricular systolic dysfunction, improving, continue to monitor Severe aortic valve stenosis, severe mitral regurgitation with pulmonary hypertension, has been seen and followed with Dr. velez for possible aortic valve replacement surgery with possible mitral valve repair Paroxysmal atrial fibrillation, was on oral anticoagulation, currently on hold. Continue to monitor H&H Anemia, monitor H&H Acute renal insufficiency, history of chronic kidney disease stage III. Continue to monitor renal function Questionable recent exposure to COVID during hospitalization in [place]. Patient status is changed to PUI Clinical Quality Measures DVT/VTE Risk/Contraindication: Risk Factor Score Per Nursin RFS Level Per Nursing on Admit: 4+=Very High BART MANN MD Jun 18, 2020 13:36
--- NOTE | 2020-06-18 16:11 | NUR ---
patient no longer a PUI. This RN will reassume patient care at this time
[2020-06-18 16:17] VITALS: BP 136/65
[2020-06-18] MEDS ORDERED: ANTACID SUSP 30 ML UDC (MYLANTA) PO PRN (19:45)
[2020-06-18] MEDS ORDERED: ACETAMINOPHEN 325 MG TABLET PO PRN (19:45)
[2020-06-18] MEDS ORDERED: BENZONATATE 100 MG (TESSALON) CAPSULE PO PRN (19:45)
[2020-06-18] MEDS ORDERED: MELATONIN 3 MG TABLET PO PRN (19:45)
[2020-06-18] MEDS ORDERED: ONDANSETRON 4 MG/2 ML (SDV) Z0FRAN IV PRN (19:45)
[2020-06-18] MEDS ORDERED: MILK OF MAGNESIA 400 MG/5 ML 30 ML UDC PO PRN (19:45)
[2020-06-18 19:57] VITALS: BP 152/67
[2020-06-19] VITALS (7 sets, daily range): BP systolic 129–151; BP diastolic 61–67
[2020-06-19] MEDS: RT-ALBUTEROL INHALER HFA (VENTOLIN HFA) 18 GM IH SCH ×5 (03:19→19:52)
[2020-06-19] MEDS: LEVOTHYROXINE 100 MCG (LEVOTHROID) TAB PO SCH (05:43)
[2020-06-19 06:29] LABS: HEMOGLOBIN 7.7 g/dL (13.3-17.7); MEAN PLATELET VOLUME 10.1 fL (9.0-12.2); WHITE BLOOD COUNT 6.6 10^3/uL (4.3-11.0)
[2020-06-19 06:52] LABS: POTASSIUM 3.6 MMOL/L (3.6-5.0)
[2020-06-19 06:54] LABS: CALCIUM 8.1 MG/DL (8.5-10.1)
[2020-06-19 06:58] LABS: CREATININE SERUM 1.82 MG/DL (0.60-1.30)
--- NOTE | 2020-06-19 08:04 | Discharge Summary ---
Diagnosis/Chief Complaint Date of Admission Jun 16, 2020 at 02:04 Date of Discharge Admission Diagnosis Acute respiratory failure Primary Care Discharge Diagnosis (1) Acute respiratory failure (2) CAD (coronary artery disease) Status: Chronic (3) CKD (chronic kidney disease) Status: Chronic (4) Counseling regarding end of life decision making Status: Acute (5) Essential (primary) hypertension Status: Chronic (6) NSTEMI (non-ST elevated myocardial infarction) Status: Acute Discharge Summary Procedures/Consulations Dr. Zuñiga, Cardiology Discharge Physical Exam Allergies: Coded Allergies: Cdywkky-Zhj-Yia Reductase Inhibitor (Verified Allergy, Severe, Break soft tissue down, 06/16/20) Vitals & I&Os Vital Signs Date Time Temp Pulse Resp B/P (MAP) Pulse Ox O2 Delivery O2 Flow Rate FiO2 06/19/20 09:00 Nasal Cannula 3.00 06/19/20 07:40 37.2 69 18 144/66 (92) 94 06/17/20 14:00 4 General Appearance: No Apparent Distress, WD/WN HEENT: PERRL/EOMI Respiratory: Lungs Clear, Normal Breath Sounds Cardiovascular: Regular Rate, Rhythm, Systolic Murmur (aortic stenosis) Gastrointestinal: Normal Bowel Sounds, Non Tender, Soft Extremity: Normal Capillary Refill, No Pedal Edema Skin: Normal Color, Warm/Dry Neurologic/Psychiatric: Alert, Oriented x3, Normal Mood/Affect Hospital Course Was the Problem List Reviewed?: Yes Admission Diagnosis: Acute respiratory failure secondary to COPD exacerbation, overlying RLL pneumonia, and acute CHF exacerbation Elevated troponin and coronary artery disease Paroxysmal atrial fibrillation HFpEF, EF 55% Hypertension Chronic kidney disease, stage 4 Discharge Diagnosis: As above Hospital Course: Acute respiratory failure due to COPD exacerbation, overlying RLL pneumonia, and acute CHF exacerbation- Patient admitted as a direct admit to [facility] from [place], [place] ED for increasing oxygen requirements. He was recently inpatient at [place] for acute CHF exacerbation and chest pain. He underwent cardiac catheterization on 06/01/2020 with balloon angioplasty to the VG to the RCA. On admission, patient was requiring BiPAP with FiO2 40%, satting mid-90s. His baseline O2 requirements is 4L NC. He was started on albuterol Q2H PRN and fluticasone, azithromycin, and ceftriaxone. Chest XR revealed mild congestive failrue with RLL pneumonia. Pulmonology and cardiology were consulted. COVID and flu negative. Lasix given for diuresis. On discharge, patient on 3L NC. Will discharge with azithromycin 250mg PO x1 day and cefdinir 300mg BID x3 days for a total of 7 days of treatment. Elevated troponin and coronary artery disease- Troponin at [facility] 0.507 and trended while here, resulting in 0.461, 0.514. EKG at [facility] revealed NSR. Cardiology believed this to be related to his acute respiratory failure. Decided to proceed with conservative management. Monitored closely while inpatient. Plavix and aspirin held at beginning of stay due to possible GI bleed but restarted. Paroxysmal atrial fibrillation- Patient has a history of paroxysmal atrial fibrillation. Placed on telemetry and held Eliquis, but restarted at end of stay. Cardiology following. HFpEF, EF 55%- Per [facility] history, patient has HFpEF 55% on recent echo 06/01/2020. Echo ordered during this stay and revealed EF 45%, grade I diastolic dysfunction, severe stenosis. Hypertension- Home medications restarted. Chronic kidney disease, stage 4- History revealed CKD4 per [facility]. All medications were renally dosed and nephrotoxic agents avoided. Creatinine bumped to 2.33, likely from diuresis. On discharge, creatinine to 1.82. Labs (last 24 hrs) Laboratory Tests 06/19/20 05:45: White Blood Count 6.6, Red Blood Count 2.27L, Hemoglobin 7.7L, Hematocrit 23L, Mean Corpuscular Volume 101H, Mean Corpuscular Hemoglobin 34, Mean Corpuscular Hemoglobin Concent 34, Red Cell Distribution Width 13.7, Platelet Count 222, Mean Platelet Volume 10.1, Sodium Level 139, Potassium Level 3.6, Chloride Level 109H, Carbon Dioxide Level 21, Anion Gap 9, Blood Urea Nitrogen 42H, Creatinine 1.82H, Estimat Glomerular Filtration Rate 36, BUN/Creatinine Ratio 23, Glucose Level 92, Calcium Level 8.1L 06/19/20 09:50: Stool Occult Blood Immunoassay NEGATIVE Microbiology 06/16/20 Influenza Types A,B Antigen (CARRIE) - Final, Complete Patient resulted labs reviewed. Pending Labs Laboratory Tests 06/19/20 05:45: White Blood Count 6.6, Red Blood Count 2.27, Hemoglobin 7.7, Hematocrit 23, Mean Corpuscular Volume 101, Mean Corpuscular Hemoglobin 34, Mean Corpuscular Hemoglobin Concent 34, Red Cell Distribution Width 13.7, Platelet Count 222, Mean Platelet Volume 10.1, Sodium Level 139, Potassium Level 3.6, Chloride Level 109, Carbon Dioxide Level 21, Anion Gap 9, Blood Urea Nitrogen 42, Creatinine 1.82, Estimat Glomerular Filtration Rate 36, BUN/Creatinine Ratio 23, Glucose Level 92, Calcium Level 8.1 06/19/20 09:50: Stool Occult Blood Immunoassay NEGATIVE Imaging: Reviewed Imaging Report Discussion & Recommendations Discharge Planning: >30 minutes discharge planning Discharge Home Medications: Active Scripts Active Reported Tylenol (Acetaminophen) 325 Mg Capsule 325-650 Mg PO Q8H PRN Nitroglycerin 0.4 Mg Tab.subl 0.4 Mg SL UD PRN Ventolin Hfa (Albuterol Sulfate) 1 Puff Puff 1 Puff INH Q6H PRN Eliquis (Apixaban) 2.5 Mg Tablet 2.5 Mg PO BID Levothyroxine Sodium 100 Mcg Tablet 100 Mcg PO DAILY Citalopram HBr (Citalopram Hydrobromide) 20 Mg Tablet 20 Mg PO DAILY Clopidogrel (Clopidogrel Bisulfate) 75 Mg Tablet 75 Mg PO DAILY Carvedilol 12.5 Mg Tablet 12.5 Mg PO BID Amlodipine Besylate 5 Mg Tablet 10 Mg PO DAILY TAKES 2 (5MG) TABS Nicotine Patch (Nicotine) 1 Each Patch.td24 1 Patch TD DAILY Isosorbide Mononitrate ER (Isosorbide Mononitrate) 30 Mg Tab.er.24h 30 Mg PO DAILY Hydralazine HCl 25 Mg Tablet 25 Mg PO TID Instructions to patient/family Please see electronic discharge instructions given to patient. Clinical Quality Measures DVT/VTE Risk/Contraindication: Risk Factor Score Per Nursin RFS Level Per Nursing on Admit: 4+=Very High Problem Qualifiers (1) Acute respiratory failure: Respiratory failure complication: hypoxia Qualified Codes: J96.01 - Acute respiratory failure with hypoxia (2) CAD (coronary artery disease): Coronary Disease-Associated Artery/Lesion type: bypass graft [place] vs. transplanted heart: [place] heart Associated angina: without angina Qualified Codes: I25.810 - Atherosclerosis of coronary artery bypass graft(s) without angina pectoris (3) CKD (chronic kidney disease): Chronic kidney disease stage: stage 4 (severe) Qualified Codes: N18.4 - Chronic kidney disease, stage 4 (severe) GINNA RECINOS, Jun 19, 2020 08:04
[2020-06-19] MEDS: ASPIRIN E.C. 81 MG (ECOTRIN) TAB PO SCH (08:49)
[2020-06-19] MEDS: AZITHROMYCIN 250 MG TAB (ZITHROMAX) PO SCH (08:50)
[2020-06-19] MEDS: ISOSORBIDE MONONITRATE 30 MG (IMDUR) TAB PO SCH (08:50)
[2020-06-19] MEDS: CARVEDILOL 12.5 MG (COREG) TABLET PO SCH ×2 (08:50→20:19)
[2020-06-19] MEDS: APIXABAN 2.5 MG (ELIQUIS) TABLET PO SCH (08:50)
[2020-06-19] MEDS: hydrALAZINE (APRESOLINE) 25 MG TAB PO SCH ×3 (08:50→20:19)
[2020-06-19] MEDS: CLOPIDOGREL 75 MG (PLAVIX) TABLET PO SCH (08:50)
[2020-06-19] MEDS: amLODIPine 10 MG (NORVASC) TAB PO SCH (08:50)
[2020-06-19] MEDS: PANTOPRAZOLE 40 MG (PROTONIX) TAB PO SCH (08:50)
--- NOTE | 2020-06-19 09:55 | Cardiology Progress Note ---
Subjective Date Seen by Provider: Jun 19, 2020 Time Seen by Provider: 09:53 Subjective/Events-last exam Patient is laying down in bed, feeling better. Going home today. No new complaint, no chest pain or shortness of breath Review of Systems General: No Chills, No Night Sweats, No Fatigue, No Malaise, No Appetite, No Other HEENT: No Head Aches, No Visual Changes, No Eye Pain, No Ear Pain, No Dysphasia, No Sinus Congestion, No Post Nasal Drip, No Sore Throat, No Other Pulmonary: No Dyspnea, No Cough, No Pleuritic Chest Pain, No Other Cardiovascular: No: Chest Pain, Palpitations, Orthopnea, Paroxysmal Noc. Dyspnea, Edema, Lt Headedness, Other Objective-Cardiology Exam Last Set of Vital Signs Vital Signs 06/17/20 06/19/20 14:00 07:40 Temp 37.2 Pulse 69 Resp 18 B/P (MAP) 144/66 (92) Pulse Ox 94 O2 Delivery Nasal Cannula O2 Flow Rate 3.00 FiO2 4 Capillary Refill : Less Than 3 SecondsGreater Than 3 Seconds I&O Intake and Output 06/19/20 00:00 Intake Total 890 ml Output Total 650 ml Balance 240 ml Intake Oral 890 ml Output Urine Total 650 ml # Voids 2 General: Alert, Oriented X3, Cooperative HEENT: Atraumatic, PERRLA Neck: Supple, No JVD, No Thyromegaly Lungs: Normal Air Movement, Other (bilateral rhonchi) Heart: Regular Rate, Normal S1, Normal S2, Other (systolic murmur at the left sternal border) Abdomen: Normal Bowel Sounds, Soft, No Tenderness, No Hepatosplenomegaly, No Masses Extremities: No Clubbing, No Cyanosis, No Edema, Normal Pulses, No Tenderness/Swelling Skin: No Rashes, No Breakdown, No Significant Lesion Neuro: Normal Speech, Normal Tone, Sensation Intact Psych/Mental Status: Mental Status NL, Mood NL Results Lab Laboratory Tests 06/19/20 05:45 A/P-Cardiology Admission Diagnosis Chest pain Non-ST elevation myocardial infarction Acute respiratory failure Acute congestive heart failure Assessment/Plan Chest pain, acute non-ST elevation myocardial infarction, mild elevation in troponin level probably a combination of small vessel coronary artery disease and severe hypoxemia. Conservative management is recommended. Okay for discharge from cardiology standpoint, follow-up with primary cooler supervisor as an outpatient. Coronary artery disease, history of CABG, status post recent laser atherectomy and balloon angioplasty to the vein graft to the right coronary artery done in [facility] earlier this month. Continue on aspirin and Plavix Status post respiratory failure, improved. Feeling better. Congestive heart failure, acute on chronic left ventricular systolic dysfunction, improved. Feeling better. Severe aortic valve stenosis, severe mitral regurgitation with pulmonary hypertension, has been seen and followed with Dr. velez for possible aortic valve replacement surgery with possible mitral valve repair Paroxysmal atrial fibrillation, was on oral anticoagulation, restart oral anticoagulation Anemia, monitor H&H Acute renal insufficiency, history of chronic kidney disease stage III. Continue to monitor renal function Clinical Quality Measures DVT/VTE Risk/Contraindication: Risk Factor Score Per Nursin RFS Level Per Nursing on Admit: 4+=Very High BART MANN MD Jun 19, 2020 09:55
--- NOTE | 2020-06-19 10:46 | Progress Note - Hospitalist ---
RIOSCamiloGINNA MAHER, 06/19/20 1046: Subjective Subjective/Events-last exam Patient no longer PUI this morning. He denied any complaints during interview. He was eating breakfast during questioning today. He states he is ready to go home. When rounding with Dr. Lazo, patient states he had a bowel movement that was black. GS consulted. Plan for discharge delayed. Objective Exam Vital Signs Vital Signs Date Time Temp Pulse Resp B/P (MAP) Pulse Ox O2 Delivery O2 Flow Rate FiO2 06/19/20 09:00 Nasal Cannula 3.00 06/19/20 07:40 37.2 69 18 144/66 (92) 94 06/17/20 14:00 4 Capillary Refill : Less Than 3 SecondsGreater Than 3 Seconds General Appearance: No Apparent Distress, WD/WN HEENT: PERRL/EOMI Neck: Non Tender, Supple Respiratory: Lungs Clear, Normal Breath Sounds Cardiovascular: Regular Rate, Rhythm, Systolic Murmur (aortic stenosis) Gastrointestinal: Normal Bowel Sounds, Non Tender, Soft Extremity: Normal Capillary Refill, No Pedal Edema Neurologic/Psychiatric: Alert, Oriented x3, Normal Mood/Affect Skin: Normal Color, Warm/Dry Results/Procedures Lab Laboratory Tests 06/19/20 05:45 Patient resulted labs reviewed. Assessment/Plan Assessment and Plan Assess & Plan/Chief Complaint 1. Acute respiratory failure secondary to COPD exacerbation, overlying RLL pneumonia, and acute CHF exacerbation * Down to 3L NC at 94% * Baseline O2 of 4L NC * Started on albuterol Q2H PRN and fluticasone * Continue azithromycin and ceftriaxone * Pulmonology consulted, appreciate their assistance * Cardiology consulted, appreciate their assistance * COVID, flu negative * MAT therapy 2. Elevated troponin and coronary artery disease * Troponin at [facility] 0.507 * Trended while here -- 0.461, 0.514 * EKG revealed NSR at [facility] * Cardiology will be consulted, appreciate their assistance - conservative management at this time * ASA and Plavix started 3. Anemia * Patient noted to have low Hg on admission * Held anticoagulation until 06/18, restarted 06/18 as Hg was stable throughout stay * Found to have dark stool on 06/19 * FOBT ordered on admission, not completed until 06/19 - negative for blood * GS consulted, appreciate their assistance * Recent colonoscopy in 2017 after GI bleed on warfarin * Will hold Eliquis and plan for colo 06/21 4. Paroxysmal atrial fibrillation * CHADsVASc 5 * HASBLED 4 * On Eliquis BID, renally dose * Tele * Consulting cardiology as above, appreciate their assistance 5. HFpEF * Echo at [facility] revealed EF 45%, grade I diastolic dysfunction, with severe stenosis * Cardiology reports from recent [facility] hospitalization in chart 6. Hypertension * Starting home medications 7. CKD4 * Hx revealed CKD4 per [facility] * GFR here 33 * Renally dose all medications * Avoid nephrotoxic agents * Creatinine up to 2.33, down to 1.89 06/19 Diet: heart healthy FULL CODE PPx: holding Eliquis Clinical Quality Measures DVT/VTE Risk/Contraindication: Risk Factor Score Per Nursin RFS Level Per Nursing on Admit: 4+=Very High MARIEL LAZO MD 06/19/20 1231: Subjective HPI/CC On Admission Date Seen by Provider: Jun 19, 2020 Time Seen by Provider: 12:26 Assessment/Plan Assessment and Plan Assess & Plan/Chief Complaint plan was to DC patient home today but he developed very dark stools and his hemoglobin has dropped. Discussed with surgery. Plan is to monitor and potentially scope if needed. FOBT sent. Creatinine continues to improve. Supervisory-Addendum Brief Verification & Attestation Participated in pt care: history, MDM, physical Personally performed: exam, history, MDM, supervision of care Care discussed with: Medical Student Procedures: n/a Results interpretation: Verified all documentation Verification and Attestation of Medical Student E/M Service A medical student performed and documented this service in my presence. I reviewed and verified all information documented by the medical student and made modifications to such information, when appropriate. I personally performed the physical exam and medical decision making. Mariel Lazo, Jun 19, 2020,12:27 GINNA RECINOS, Jun 19, 2020 10:46 MARIEL LAZO MD Jun 19, 2020 12:31
[2020-06-19] MEDS: ADVAIR HFA 115/21 MCG INHALER 8 GM IH SCH ×2 (10:51→19:51)
[2020-06-19] MEDS: cefTRIAXone FOR IV USE 1,000 MG in WATER (STERILE) FOR INJECTION 10 ML IV SCH (11:11)
--- NOTE | 2020-06-19 11:18 | Consultation - Surgery ---
KARISHMA BELTRÁN MED STUDENT 06/19/20 1118: History of Present Illness History of Present Illness Patient Consulted On(wendy/time) 06/19/20 11:09 Date Seen by Provider: Jun 19, 2020 Time Seen by Provider: 10:40 Reason for Visit: Chest pain, dypsnea History of Present Illness Mr. Caal is an 85 year old male who was a direct admit from the ED in [place]. He was admitted with acute respiratory failure for COPD exacerbation, RLL pneumonia, acute HF exacerbation, and a NSTEMI. He was recently a patient at [facility] in [place] on 06-07 for an acute HF exacerbation and chest pain. Surgery service was consulted because the patient had a black/dark colored stool this morning. The patient states that he has not had any bright red blood or dark stools prior to the one this morning recently. He denies nausea, vomiting, diarrhea or abdominal pain. He denies pain at any location currently. He is on plavix and eliquis currently due to his cardiac history. He denies any other complaints/concerns at this point in time. Allergies and Home Medications Allergies Coded Allergies: Sbjmamb-Gpo-Uyy Reductase Inhibitor (Verified Allergy, Severe, Break soft tissue down, 06/16/20) Home Medications Acetaminophen 325 Mg Capsule, 325-650 MG PO Q8H PRN for PAIN-MILD (1-4), (Reported) Albuterol Sulfate 1 Puff Puff, 1 PUFF INH Q6H PRN for SHORTNESS OF BREATH, (Reported) Amlodipine Besylate 5 Mg Tablet, 10 MG PO DAILY, (Reported) TAKES 2 (5MG) TABS Apixaban 2.5 Mg Tablet, 2.5 MG PO BID, (Reported) Carvedilol 12.5 Mg Tablet, 12.5 MG PO BID, (Reported) Citalopram Hydrobromide 20 Mg Tablet, 20 MG PO DAILY, (Reported) Clopidogrel Bisulfate 75 Mg Tablet, 75 MG PO DAILY, (Reported) Hydralazine HCl 25 Mg Tablet, 25 MG PO TID, (Reported) Isosorbide Mononitrate 30 Mg Tab.er.24h, 30 MG PO DAILY, (Reported) Levothyroxine Sodium 100 Mcg Tablet, 100 MCG PO DAILY, (Reported) Nicotine 1 Each Patch.td24, 1 PATCH TD DAILY, (Reported) Nitroglycerin 0.4 Mg Tab.subl, 0.4 MG SL UD PRN for CHEST PAIN (ANGINA), (Reported) Past Xhialmx-Penooo-Hlbxsg Hx Patient Social History Alcohol Use: Occasionally Uses (2 cans/week) Recreational Drug Use: Yes Drug of Choice: hx of methamphetamine per [facility] report Smoking Status: Current Everyday Smoker Immunizations Up To Date Date of Pneumonia Vaccine: Apr 27, 2016 Date of Influenza Vaccine: May 28, 2020 Surgeries Surgeries: Abdominal (hernia repair, unknown location), CABG, Coronary Stent Cardiovascular Cardiac Disorders: Atrial Fibrillation (on Eliquis), Coronary Artery Disease, Hypertension, Valvular Heart Disease (aortic stenosis per [facility]) Family Medical History Significant Family History: Heart Disease (2 brothers, 1 with NC), Cancer (lung cancer in mother) Family Medial History: Cardiovascular disease 19 FATHER, , Onset:Unknown Dementia G8 BROTHER, Onset:Unknown FH: stroke G8 SISTER, , Onset:Unknown Review of Systems-General Constitutional: no symptoms reported; No chills, No diaphoresis EENTM: no symptoms reported; No blurred vision, No double vision Respiratory: no symptoms reported; No cough, No short of breath Cardiovascular: no symptoms reported; No chest pain, No edema Gastrointestinal: no symptoms reported; No abdominal pain, No constipation, No diarrhea, No nausea, No vomiting Genitourinary: no symptoms reported; No dysuria, No frequency Musculoskeletal: no symptoms reported Skin: no symptoms reported Psychiatric/Neurological: No Symptoms Reported All Other Systems Reviewed Negative Unless Noted: Yes Physical Exam-General Problems Physical Exam Vital Signs Vital Signs - First Documented 06/16/20 06/16/20 06/16/20 06/16/20 02:00 02:15 03:26 09:00 Temp 36.8 Pulse 74 Resp 14 B/P (MAP) 142/78 Pulse Ox 91 O2 Delivery OxyMask O2 Flow Rate 15.00 FiO2 40 Capillary Refill : Less Than 3 SecondsGreater Than 3 Seconds General Appearance: WD/WN, no apparent distress Eyes: Bilateral Eye EOMI HEENT: PERRL/EOMI Neck: non-tender, full range of motion Respiratory: chest non-tender, normal breath sounds, no respiratory distress, no accessory muscle use Cardiovascular: normal peripheral pulses, regular rate, rhythm, no edema Peripheral Pulses: 2+ Dorsalis Pedis (R), 2+ Left Dors-Pedis (L), 2+ Radial Pulses (R), 2+ Radial Pulses (L) Gastrointestinal: normal bowel sounds, non tender; No distended, No tenderness Back: normal inspection Extremities: normal range of motion, non-tender, no pedal edema, no calf tenderness, normal capillary refill Neurologic/Psychiatric: no motor/sensory deficits, alert, normal mood/affect Skin: normal color, warm/dry Lymphatic: no adenopathy Data Review Labs Laboratory Tests 06/19/20 05:45: White Blood Count 6.6, Red Blood Count 2.27L, Hemoglobin 7.7L, Hematocrit 23L, Mean Corpuscular Volume 101H, Mean Corpuscular Hemoglobin 34, Mean Corpuscular Hemoglobin Concent 34, Red Cell Distribution Width 13.7, Platelet Count 222, Mean Platelet Volume 10.1, Sodium Level 139, Potassium Level 3.6, Chloride Level 109H, Carbon Dioxide Level 21, Anion Gap 9, Blood Urea Nitrogen 42H, Creatinine 1.82H, Estimat Glomerular Filtration Rate 36, BUN/Creatinine Ratio 23, Glucose Level 92, Calcium Level 8.1L 06/19/20 09:50: Stool Occult Blood Immunoassay NEGATIVE Microbiology 06/16/20 Influenza Types A,B Antigen (CARRIE) - Final, Complete Assessment/Plan Assessment/Plan Admission Diagonsis Acute respiratory failure due to COPD exacerbation RLL pneumonia Acute Heart failure NSTEMI Possible gastrointestinal bleed 1.) Hold plavix and eliquis-in anticipation of colonoscopy sunday 2.) Continue current medical management as ordered 3.) Continue to trend Hemoglobin and hematocrit 4.) Plan for possible colonoscopy on Sunday. Clinical Quality Measures DVT/VTE Risk/Contraindication: Risk Factor Score Per Nursin RFS Level Per Nursing on Admit: 4+=Very High NICOLE KAMINSKI DO 06/19/20 1437: History of Present Illness History of Present Illness History of Present Illness Consult requested by Dr. Lazo for black stools. Patient is an 85-year-old male who was admitted with acute respiratory failure for COPD exacerbation right lower lobe pneumonia acute heart failure exacerbatio n and a NSTEMI. Patient was restarted on his Eliquis and began having black dark-colored stools today. He has been anemic. He has had issues with bleeding from GI tract previously but unable to ever find a source. Patient states he is doing better overall. He is not having any abdominal pain. His breathing has improved. He denies any nausea vomiting fever sweats chills shortness of breath or chest pain at this time. Allergies and Home Medications Allergies Coded Allergies: Kemczyh-Qdr-Ljn Reductase Inhibitor (Verified Allergy, Severe, Break soft tissue down, 06/16/20) Home Medications Acetaminophen 325 Mg Capsule, 325-650 MG PO Q8H PRN for PAIN-MILD (1-4), (Reported) Albuterol Sulfate 1 Puff Puff, 1 PUFF INH Q6H PRN for SHORTNESS OF BREATH, (Reported) Amlodipine Besylate 5 Mg Tablet, 10 MG PO DAILY, (Reported) TAKES 2 (5MG) TABS Apixaban 2.5 Mg Tablet, 2.5 MG PO BID, (Reported) Carvedilol 12.5 Mg Tablet, 12.5 MG PO BID, (Reported) Citalopram Hydrobromide 20 Mg Tablet, 20 MG PO DAILY, (Reported) Clopidogrel Bisulfate 75 Mg Tablet, 75 MG PO DAILY, (Reported) Hydralazine HCl 25 Mg Tablet, 25 MG PO TID, (Reported) Isosorbide Mononitrate 30 Mg Tab.er.24h, 30 MG PO DAILY, (Reported) Levothyroxine Sodium 100 Mcg Tablet, 100 MCG PO DAILY, (Reported) Nicotine 1 Each Patch.td24, 1 PATCH TD DAILY, (Reported) Nitroglycerin 0.4 Mg Tab.subl, 0.4 MG SL UD PRN for CHEST PAIN (ANGINA), (Reported) Patient Home Medication List Home Medication List Reviewed: Yes Past Wyosnlk-Iezxgt-Xtgfwm Hx Reviewed Nursing Assessment Reviewed/Agree w Nursing PMH: Yes Family Medical History Significant Family History: No Pertinent Family Hx Family Medial History: Cardiovascular disease 19 FATHER, , Onset:Unknown Dementia G8 BROTHER, Onset:Unknown FH: stroke G8 SISTER, , Onset:Unknown Review of Systems-General Constitutional: No chills, No diaphoresis EENTM: No blurred vision, No double vision Respiratory: No cough, No short of breath Cardiovascular: No chest pain, No edema Gastrointestinal: No abdominal pain, No constipation, No diarrhea, No nausea, No vomiting; other (black stools) Genitourinary: No dysuria, No frequency Musculoskeletal: No back pain, No joint pain Skin: No change in color, No change in hair/nails Psychiatric/Neurological: Denies Anxiety, Denies Depressed All Other Systems Reviewed Negative Unless Noted: Yes (Negative excepted noted.) Physical Exam-General Problems Physical Exam General Appearance: WD/WN, no apparent distress HEENT: PERRL/EOMI, normal ENT inspection Neck: non-tender, full range of motion, supple Respiratory: chest non-tender, no respiratory distress, no accessory muscle use Cardiovascular: normal peripheral pulses, regular rate, rhythm, no edema Gastrointestinal: non tender, soft, no organomegaly; No distended, No tenderness Rectal: deferred Back: normal inspection, no vertebral tenderness Extremities: normal range of motion, non-tender, no pedal edema, no calf tenderness Neurologic/Psychiatric: no motor/sensory deficits, alert, normal mood/affect, oriented x 3 Skin: normal color, warm/dry Lymphatic: no adenopathy Assessment/Plan Assessment/Plan Assessment/Plan Anemia Gi bleed retirement anticoagulation Patient with history of GI bleeds without ever finding source would hold antiplatelets and anticoagulation monitor hgb and transfuse prn would plan on Endoscopy (EGD/Colonoscopy likely sunday) Supervisory-Addendum Brief Verification & Attestation Participated in pt care: history, MDM, physical Personally performed: exam, history, MDM, supervision of care Care discussed with: Medical Student Procedures: n/a Results interpretation: Verified all documentation Verification and Attestation of Medical Student E/M Service A medical student performed and documented this service in my presence. I reviewed and verified all information documented by the medical student and made modifications to such information, when appropriate. I personally performed the physical exam and medical decision making. Nicole Kaminski, Jun 19, 2020,14:39 KARISHMA BELTRÁN MED STUDENT Jun 19, 2020 11:18 NICOLE KAMINSKI DO Jun 19, 2020 14:37
--- NOTE | 2020-06-19 12:14 | Physical Therapy Daily Note ---
PT Daily Note-Current Subjective Pt presents supine in bed upon arrival to room, agreeable to therapy treatment at this time. No complaints of pain noted. Appearance Following session, pt sitting up in chair with call light and tray within reach. All needs met at this time. Mental Status Patient Orientation: Person, Place, Situation Attachments: Oxygen (3L NC) Transfers SCALE: Activities may be completed with or without assistive devices. 5-Evxzseqvja-gyndcyc completes the activity by him/herself with no assistance from a helper. 5-Set-up or Clean-up Assistance-helper sets up or cleans up; patient completes activity. [place] assists only prior to or following the activity. 4-Supervision or Touching Assistance-helper provides verbal cues and/or touching/steadying and/or contact guard assistance as patient completes activity. Assistance may be provided throughout the activity or intermittently. 3-Partial/Moderate Assistance-helper does LESS THAN HALF the effort. Phoenix lifts, holds or supports trunk or limbs, but provides less than half the effort. 2-Substantial/Maximal Assistance-helper does MORE THAN HALF the effort. [place] lifts or holds trunk or limbs and provides more than half the effort. 3-Hqlieqdkf-srpomj does ALL the effort. Patient does none of the effort to complete the activity. Or, the assistance of 2 or more helpers is required for the patient to complete the activity. If activity was not attempted, code reason: 7-Patient Refused. 9-Not Applicable-not attempted and the patient did not perform the activity before the current illness, exacerbation or injury. 10-Not Attempted due to Environmental Limitations-(lack of equipment, weather restraints, etc.). 88-Not Attempted due to Medical Conditions or Safety Concerns. Sit to Lying (QC): 6 Sit to Stand (QC): 6 Gait Training Distance: 300' 50' Walk 10 feet (QC): 5 Walk 50 ft with 2 Turns(QC): 5 Walk 150 ft (QC): 5 Gait Assistive Device: FWW Pt with kyphotic posture throughout gait cycle. Pt with functional sequence. Treatments Pt initially SOA following ambulation but quickly returns to baseline with seated rest break. Assessment Current Status: Good Progress Pt with good functional gait pattern with FWW. Will continue to progress tolerance. PT Mcfp Goals Mcfp Goals PT Carbon Lamp Cleaner Goals Time Frame: Jun 26, 2020 Roll Left & Right (QC): 6 Sit to Lying (QC): 6 Lying-Sitting on Side/Bed(QC): 6 Sit to Stand (QC): 6 Chair/Ugj-zn-Ibnim Xfer(QC): 6 Toilet Transfer (QC): 6 Car Transfer (QC): 6 Does the Patient Walk: Yes Walk 10 feet (QC): 6 Walk 50ft with 2 Turns (QC): 6 Walk 150 ft (QC): 6 PT Plan Problem List Problem List: Activity Tolerance, Functional Strength, Safety, Balance, Gait, Transfer, Bed Mobility, ROM Treatment/Plan Treatment Plan: Continue Plan of Care Treatment Plan: Education, Functional Activity [place], Functional Strength, Gait, Safety, Therapeutic Exercise Treatment Duration: Jun 26, 2020 Frequency: 6 times per week Estimated Hrs Per Day: .25 hour per day Time/GCodes Time In: 1147 Time Out: 1205 Total Billed Treatment 1 visit GT (15') GUY DU PT Jun 19, 2020 12:14
--- NOTE | 2020-06-19 21:40 | NUR ---
PT C/O OF CHEST PAIN RATING 7/10. CALLED DR. RYAN AND RECEIVED NEW ORDER FOR NITROGLYCERIN SL TAB 0.4MG, EKG, AND A TROPONIN. CALLED TO UPDATE DR. MANN AT 2216, HIS NURSE ANSWERED AND STATED WAS NOT AVAILABLE AT THE MOMENT I LEFT MESSAGE WITH HER ABOUT PATIENT CONDITION. ADMINISTERED NITRO TAB AT 2200. PT BP POST ADMIN OF NITRO 126/72. PT STATED HE WAS FEELING RELIEF OF CHEST PAIN WITHIN AN HOUR OF RECEIVING NITRO SL TAB. DR MANN ON SITE ALREADY AT 2320, STOPPED BY TO CHECK ON PT AND LOOKED AT THE EKG READING, PT STABLE AND RATING PAIN 0/10. WILL CONTINUE TO MONITOR.
[2020-06-19] MEDS ORDERED: NITROGLYCERIN 0.4 MG SL TABS BTL 25'S SL ONE (21:54)
[2020-06-19] MEDS ORDERED: NITROGLYCERIN 0.4 MG SL TABS BTL 25'S SL PRN (22:00)
[2020-06-19] MEDS: ACETAMINOPHEN 325 MG TABLET PO PRN (22:20)
[2020-06-20] MEDS: RT-ALBUTEROL INHALER HFA (VENTOLIN HFA) 18 GM IH SCH ×4 (03:40→18:13)
[2020-06-20 04:02] VITALS: BP 122/59
[2020-06-20] MEDS: LEVOTHYROXINE 100 MCG (LEVOTHROID) TAB PO SCH (06:02)
[2020-06-20 06:26] LABS: HEMOGLOBIN 7.5 g/dL (13.3-17.7); MEAN PLATELET VOLUME 9.6 fL (9.0-12.2); WHITE BLOOD COUNT 6.8 10^3/uL (4.3-11.0)
[2020-06-20 06:42] LABS: CALCIUM 8.1 MG/DL (8.5-10.1); CREATININE SERUM 1.81 MG/DL (0.60-1.30); POTASSIUM 3.6 MMOL/L (3.6-5.0)
[2020-06-20 08:00] VITALS: BP 134/63
[2020-06-20] MEDS: hydrALAZINE (APRESOLINE) 25 MG TAB PO SCH ×3 (09:06→20:13)
[2020-06-20] MEDS: PANTOPRAZOLE 40 MG (PROTONIX) TAB PO SCH (09:06)
[2020-06-20] MEDS: CARVEDILOL 12.5 MG (COREG) TABLET PO SCH ×2 (09:06→20:13)
[2020-06-20] MEDS: amLODIPine 10 MG (NORVASC) TAB PO SCH (09:06)
[2020-06-20] MEDS: AZITHROMYCIN 250 MG TAB (ZITHROMAX) PO SCH (09:06)
[2020-06-20] MEDS: ISOSORBIDE MONONITRATE 30 MG (IMDUR) TAB PO SCH (09:06)
--- NOTE | 2020-06-20 09:33 | Progress Note - Surgery ---
KARISHMA BELTRÁN MED STUDENT 06/20/20 0933: Subjective Date Seen by a Provider: Jun 20, 2020 Time Seen by a Provider: 09:18 Subjective/Events-last exam Mr. Caal reports he is doing very well this morning. He denies any pain whatsoever. He reports sleeping well over night. He is tolerating po well without nausea, vomiting, or diarrhea. Denies SOB, CP, fever, chills, and abdominal pain. He stated he had 1 BM this morning that was still dark colored/black, but less dark from the day prior. He reports that at about 2200 last night he had an episode of chest pain that did not radiate anywhere. He was also short of breath during this episode. He reports that the nurses gave him two doses of sublingual nitroglycerin and that subsequently relieved his chest pain. He has had no other issues since that time. Review of Systems General: No Chills, No Night Sweats HEENT: No Head Aches, No Visual Changes Pulmonary: No Dyspnea, No Cough Cardiovascular: No: Chest Pain, Palpitations Gastrointestinal: No: Nausea, Vomiting, Abdominal Pain Genitourinary: No Dysuria, No Frequency Musculoskeletal: No: neck pain Neurological: No: Weakness, Numbness Objective Exam Vital Signs Date Time Temp Pulse Resp B/P (MAP) Pulse Ox O2 Delivery O2 Flow Rate FiO2 06/20/20 04:02 37.1 73 20 122/59 (80) 94 Nasal Cannula 3.00 06/20/20 03:41 Nasal Cannula 3.00 06/19/20 23:40 36.7 73 18 130/61 (84) 94 Nasal Cannula 3.00 06/19/20 20:00 Nasal Cannula 3.00 06/19/20 19:52 93 Nasal Cannula 3.00 06/19/20 19:35 36.7 79 18 151/67 (95) 92 Nasal Cannula 3.00 06/19/20 15:45 36.6 69 18 137/62 (87) 94 Nasal Cannula 3.00 06/19/20 11:25 36.8 66 18 129/61 (83) 93 Nasal Cannula 3.00 06/19/20 10:54 93 Nasal Cannula 3.00 06/19/20 10:52 93 Nasal Cannula 3.00 06/19/20 10:52 66 93 I & O 06/20/20 07:00 Intake Total 1160 ml Output Total 1200 ml Balance -40 ml Capillary Refill : Less Than 3 SecondsGreater Than 3 Seconds General Appearance: No Apparent Distress, WD/WN HEENT: PERRL/EOMI Neck: Normal Inspection, Non Tender Respiratory: Chest Non Tender, Lungs Clear, Normal Breath Sounds, No Accessory Muscle Use, No Respiratory Distress Cardiovascular: Regular Rate, Rhythm, No Edema, Normal Peripheral Pulses, Systolic Murmur (aortic stenosis) Peripheral Pulses: 2+ Dorsalis Pedis (R), 2+ Left Dors-Pedis (L), 2+ Radial Pulses (R), 2+ Radial Pulses (L) Gastrointestinal: normal bowel sounds, non tender, soft; No distended, No tenderness Extremity: Normal Capillary Refill, No Calf Tenderness, No Pedal Edema Neurologic/Psychiatric: Alert, Oriented x3, No Motor/Sensory Deficits, Normal Mood/Affect Skin: Normal Color, Warm/Dry, Ecchymosis (scattered) Lymphatic: No Adenopathy Results Lab Laboratory Tests 06/19/20 09:50: Stool Occult Blood Immunoassay NEGATIVE 06/19/20 22:04: Troponin I 0.538*H 06/20/20 06:10: White Blood Count 6.8, Red Blood Count 2.19L, Hemoglobin 7.5L, Hematocrit 22L, Mean Corpuscular Volume 101H, Mean Corpuscular Hemoglobin 34, Mean Corpuscular Hemoglobin Concent 34, Red Cell Distribution Width 13.8, Platelet Count 245, Mean Platelet Volume 9.6, Sodium Level 141, Potassium Level 3.6, Chloride Level 110H, Carbon Dioxide Level 21, Anion Gap 10, Blood Urea Nitrogen 38H, Creatinine 1.81H, Estimat Glomerular Filtration Rate 36, BUN/Creatinine Ratio 21, Glucose Level 97, Calcium Level 8.1L Microbiology 06/16/20 Influenza Types A,B Antigen (CARRIE) - Final, Complete Assessment/Plan Assessment/Plan Assessment/Plan Anemia GI bleed custodial anticoagulation Patient with history of GI bleeds without ever finding source Continue to hold antiplatelets and anticoagulation monitor hgb and transfuse prn would plan on Endoscopy (EGD/Colonoscopy likely sunday) Clinical Quality Measures DVT/VTE Risk/Contraindication: Risk Factor Score Per Nursin RFS Level Per Nursing on Admit: 4+=Very High NICOLE MOBLEY DO 06/20/20 1403: Subjective Subjective/Events-last exam Reports dark stool. No change from yesterday. Anit-Coagulation on hold. Denies n/v fever sweats chills shortness of breath or chest pain at this time. Patient does not want colonoscopy, but willing to do EGD. 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 I reviewed and verified all information documented by the medical student and made modifications to such information, when appropriate. I personally performed the physical exam and medical decision making. Nicole Mobley, Jun 20, 2020,14:03 KARISHMA BELTRÁN MED STUDENT Jun 20, 2020 09:33 NICOLE MOBLEY DO Jun 20, 2020 14:03
--- NOTE | 2020-06-20 09:47 | Progress Note - Hospitalist ---
JOSEGINNA MAHER, 06/20/20 0947: Subjective Subjective/Events-last exam Mr. Caal is doing well this morning. He states he had chest pain overnight but nothing since then. He denies any shortness of breath. Patient did have another BM today but states it was not as dark as the last. He tells me he is declining a colonoscopy now but will proceed with the EGD as planned. Objective Exam Vital Signs Vital Signs Date Time Temp Pulse Resp B/P (MAP) Pulse Ox O2 Delivery O2 Flow Rate FiO2 06/20/20 09:00 Nasal Cannula 3.00 06/20/20 04:02 37.1 73 20 122/59 (80) 94 06/17/20 14:00 4 Capillary Refill : Less Than 3 SecondsGreater Than 3 Seconds General Appearance: No Apparent Distress, WD/WN HEENT: PERRL/EOMI Neck: Non Tender, Supple Respiratory: Lungs Clear, Normal Breath Sounds Cardiovascular: Regular Rate, Rhythm, Systolic Murmur (aortic stenosis) Gastrointestinal: Normal Bowel Sounds, Non Tender, Soft Extremity: Normal Capillary Refill, No Pedal Edema Neurologic/Psychiatric: Alert, Normal Mood/Affect Skin: Normal Color, Warm/Dry Results/Procedures Lab Laboratory Tests 06/20/20 06:10 Patient resulted labs reviewed. Assessment/Plan Assessment and Plan Assess & Plan/Chief Complaint 1. Acute respiratory failure secondary to COPD exacerbation, overlying RLL pneumonia, and acute CHF exacerbation * Down to 3L NC at 94% * Baseline O2 of 4L NC * Started on albuterol Q2H PRN and fluticasone * Continue azithromycin and ceftriaxone * Pulmonology consulted, appreciate their assistance * Cardiology consulted, appreciate their assistance * COVID, flu negative * MAT therapy 2. Elevated troponin and coronary artery disease * Troponin at [facility] 0.507 * Trended while here -- 0.461, 0.514 * EKG revealed NSR at [facility] * Cardiology will be consulted, appreciate their assistance - conservative management at this time * ASA and Plavix started * Had chest pain overnight and troponin elevated to 0.538 * Discussed with Dr. Zuñiga and given nitroglycerin, resolved 3. Anemia * Patient noted to have low Hg on admission * Held anticoagulation until 06/18, restarted 06/18 as Hg was stable throughout stay * Found to have dark stool on 06/19 * FOBT ordered on admission, not completed until 06/19 - negative for blood * GS consulted, appreciate their assistance * Recent colonoscopy in 2017 after GI bleed on warfarin * Will hold Eliquis * Plan for EGD 06/21, patient declining colo 4. Paroxysmal atrial fibrillation * CHADsVASc 5 * HASBLED 4 * On Eliquis BID, renally dose, holding for scope * Tele * Consulting cardiology as above, appreciate their assistance 5. HFpEF * Echo at [facility] revealed EF 45%, grade I diastolic dysfunction, with severe stenosis * Cardiology reports from recent [facility] hospitalization in chart 6. Hypertension * Starting home medications 7. CKD4 * Hx revealed CKD4 per [facility] * GFR here 33 * Renally dose all medications * Avoid nephrotoxic agents * Creatinine up to 2.33, down to 1.81 06/20 Diet: heart healthy FULL CODE PPx: holding Eliquis for EGD 06/21 Clinical Quality Measures DVT/VTE Risk/Contraindication: Risk Factor Score Per Nursin RFS Level Per Nursing on Admit: 4+=Very High MARIEL LAZO MD 06/20/20 1325: Subjective HPI/CC On Admission Date Seen by Provider: Jun 20, 2020 Time Seen by Provider: 11:00 Assessment/Plan Assessment and Plan Assess & Plan/Chief Complaint Pt reports feeling much better today. Has declined colonoscopy but agreeable to EGD. plan for it tomorrow. If hgb stable, no further dark stools, and EGD ok can likely DC home tomorrow. Supervisory-Addendum Brief Verification & Attestation Participated in pt care: history, MDM, physical Personally performed: exam, history, MDM, supervision of care Care discussed with: Medical Student Procedures: n/a Results interpretation: Verified all documentation Verification and Attestation of Medical Student E/M Service A medical student performed and documented this service in my presence. I reviewed and verified all information documented by the medical student and made modifications to such information, when appropriate. I personally performed the physical exam and medical decision making. Mariel Lazo, Jun 20, 2020,13:24 GINNA RECINOS, Jun 20, 2020 09:47 MARIEL LAZO MD Jun 20, 2020 13:25
[2020-06-20] MEDS: ADVAIR HFA 115/21 MCG INHALER 8 GM IH SCH ×2 (10:41→18:14)
[2020-06-20] MEDS: cefTRIAXone FOR IV USE 1,000 MG in WATER (STERILE) FOR INJECTION 10 ML IV SCH (11:18)
[2020-06-20 12:00] VITALS: BP 135/65
--- NOTE | 2020-06-20 12:51 | Cardiology Progress Note ---
Subjective Date Seen by Provider: Jun 20, 2020 Time Seen by Provider: 12:48 Subjective/Events-last exam Patient is laying down in bed, feeling well. He is an episode of chest pain last night. He refused nitroglycerin. Review of Systems General: No Chills, No Night Sweats, No Fatigue, No Malaise, No Appetite, No Other HEENT: No Head Aches, No Visual Changes, No Eye Pain, No Ear Pain, No Dysphasia, No Sinus Congestion, No Post Nasal Drip, No Sore Throat, No Other Pulmonary: No Dyspnea, No Cough, No Pleuritic Chest Pain, No Other Cardiovascular: No: Chest Pain, Palpitations, Orthopnea, Paroxysmal Noc. Dyspnea, Edema, Lt Headedness, Other Objective-Cardiology Exam Last Set of Vital Signs Vital Signs 06/17/20 06/20/20 06/20/20 14:00 08:00 09:00 Temp 36.7 Pulse 75 Resp 20 B/P (MAP) 134/63 (86) Pulse Ox 93 O2 Delivery Nasal Cannula O2 Flow Rate 3.00 FiO2 4 Capillary Refill : Less Than 3 SecondsGreater Than 3 Seconds I&O Intake and Output 06/20/20 00:00 Intake Total 1540 ml Output Total 1300 ml Balance 240 ml Intake Oral 1540 ml Output Urine Total 1300 ml # Bowel Movements 1 General: Alert, Oriented X3, Cooperative HEENT: Atraumatic, PERRLA Neck: Supple, No JVD, No Thyromegaly Lungs: Normal Air Movement, Other (bilateral rhonchi) Heart: Regular Rate, Normal S1, Normal S2, Other (systolic murmur at the left sternal border) Abdomen: Normal Bowel Sounds, Soft, No Tenderness, No Hepatosplenomegaly, No Masses Extremities: No Clubbing, No Cyanosis, No Edema, Normal Pulses, No Tenderness/Swelling Skin: No Rashes, No Breakdown, No Significant Lesion Neuro: Normal Speech, Normal Tone, Sensation Intact Psych/Mental Status: Mental Status NL, Mood NL Results Lab Laboratory Tests 06/20/20 06:10 A/P-Cardiology Admission Diagnosis Chest pain Non-ST elevation myocardial infarction Acute respiratory failure Acute congestive heart failure Assessment/Plan Chest pain, acute non-ST elevation myocardial infarction, mild elevation in troponin level probably a combination of small vessel coronary artery disease and severe hypoxemia. Conservative management is recommended. Coronary artery disease, history of CABG, status post recent laser atherectomy and balloon angioplasty to the vein graft to the right coronary artery done in [facility] earlier this month. The patient will need to be back on aspirin and Plavix as soon as possible. Anemia, worsening H&H. Possible endoscopy. Continue to monitor Status post respiratory failure, improved. Feeling better. Congestive heart failure, acute on chronic left ventricular systolic dysfunction, improved. Feeling better. Severe aortic valve stenosis, severe mitral regurgitation with pulmonary hypertension, has been seen and followed with Dr. velez for possible aortic valve replacement surgery with possible mitral valve repair Paroxysmal atrial fibrillation, was on oral anticoagulation, restart oral anticoagulation when deemed reasonable by the surgeon Anemia, monitor H&H Acute renal insufficiency, history of chronic kidney disease stage III. Continue to monitor renal function Clinical Quality Measures DVT/VTE Risk/Contraindication: Risk Factor Score Per Nursin RFS Level Per Nursing on Admit: 4+=Very High BART MANN MD Jun 20, 2020 12:51
[2020-06-20 15:57] VITALS: BP 162/72
--- NOTE | 2020-06-20 17:40 | NUR ---
patient complaint of trouble catching breathe at this time. patient is sitting at side of bed bent over. O2 level at 88% with 3L at this time, O2 increased to 4L and patient was instructed by this RN to sit up straight to help with air flow. O2 level at 95% at this time and RT called for PRN treatment
[2020-06-20 20:00] VITALS: BP 139/68
[2020-06-21] VITALS (11 sets, daily range): BP systolic 126–139; BP diastolic 58–71
[2020-06-21] MEDS: RT-ALBUTEROL INHALER HFA (VENTOLIN HFA) 18 GM IH SCH ×3 (02:44→14:25)
[2020-06-21 06:03] LABS: HEMOGLOBIN 7.7 g/dL (13.3-17.7); MEAN PLATELET VOLUME 9.7 fL (9.0-12.2); WHITE BLOOD COUNT 7.2 10^3/uL (4.3-11.0)
[2020-06-21 06:15] LABS: POTASSIUM 3.8 MMOL/L (3.6-5.0)
[2020-06-21 06:16] LABS: CALCIUM 8.2 MG/DL (8.5-10.1)
[2020-06-21 06:21] LABS: CREATININE SERUM 1.87 MG/DL (0.60-1.30)
[2020-06-21] MEDS: LEVOTHYROXINE 100 MCG (LEVOTHROID) TAB PO SCH (06:22)
--- NOTE | 2020-06-21 07:53 | Progress Note - Surgery ---
Subjective Date Seen by a Provider: Jun 21, 2020 Time Seen by a Provider: 07:51 Subjective/Events-last exam Still with dark stools. Hgb stable. Denies any new complaints. Denies abdominal pain. Denies n/v fever sweats chills shortness of breath or chest pain. Only wants EGD, no colonoscopy. Objective Exam Vital Signs Date Time Temp Pulse Resp B/P (MAP) Pulse Ox O2 Delivery O2 Flow Rate FiO2 06/21/20 03:54 36.4 78 20 126/58 (80) 90 Nasal Cannula 3.00 06/21/20 02:45 95 Nasal Cannula 4.00 06/21/20 00:29 36.4 70 19 128/61 (83) 96 Nasal Cannula 3.00 06/20/20 20:27 24 30.00 06/20/20 20:13 Nasal Cannula 4.00 06/20/20 20:00 37.1 81 18 139/68 (91) 90 Nasal Cannula 3.00 06/20/20 18:15 89 Nasal Cannula 4.00 06/20/20 15:57 37.1 71 18 162/72 (102) 91 Nasal Cannula 3.00 06/20/20 14:53 83 Nasal Cannula 3.00 06/20/20 12:00 37.0 71 18 135/65 (88) 91 Nasal Cannula 3.00 06/20/20 09:00 Nasal Cannula 3.00 06/20/20 08:00 36.7 75 20 134/63 (86) 93 Nasal Cannula 3.00 I & O 06/21/20 06:59 Intake Total 1660 ml Output Total 1075 ml Balance 585 ml Capillary Refill : Less Than 3 SecondsLess Than 3 Seconds General Appearance: No Apparent Distress, WD/WN HEENT: PERRL/EOMI, Normal ENT Inspection Neck: Normal Inspection, Non Tender Respiratory: Chest Non Tender, No Accessory Muscle Use, No Respiratory Distress Cardiovascular: Regular Rate, Rhythm, No Edema Peripheral Pulses: 2+ Dorsalis Pedis (R), 2+ Left Dors-Pedis (L), 2+ Radial Pulses (R), 2+ Radial Pulses (L) Gastrointestinal: non tender, soft; No distended, No tenderness Extremity: Normal Capillary Refill, No Calf Tenderness Neurologic/Psychiatric: Alert, Oriented x3, No Motor/Sensory Deficits, Normal Mood/Affect Skin: Normal Color, Warm/Dry Lymphatic: No Adenopathy Results Lab Laboratory Tests 06/21/20 05:20: White Blood Count 7.2, Red Blood Count 2.23L, Hemoglobin 7.7L, Hematocrit 23L, Mean Corpuscular Volume 102H, Mean Corpuscular Hemoglobin 35H, Mean Corpuscular Hemoglobin Concent 34, Red Cell Distribution Width 14.1, Platelet Count 279, Mean Platelet Volume 9.7, Sodium Level 141, Potassium Level 3.8, Chloride Level 110H, Carbon Dioxide Level 21, Anion Gap 10, Blood Urea Nitrogen 37H, Creatinine 1.87H, Estimat Glomerular Filtration Rate 35, BUN/Creatinine Ratio 20, Glucose Level 101, Calcium Level 8.2L Microbiology 06/16/20 Influenza Types A,B Antigen (CARRIE) - Final, Complete Assessment/Plan Assessment/Plan Assessment/Plan Anemia GI bleed longterm anticoagulation Hgb stable Patient agreeable to EGD, does not want colonoscopy will proceed with EGD Today Anticoagulation held NPO Clinical Quality Measures DVT/VTE Risk/Contraindication: Risk Factor Score Per Nursin RFS Level Per Nursing on Admit: 4+=Very High NICOLE KAMINSKI DO Jun 21, 2020 07:53
[2020-06-21] MEDS ORDERED: proPOfol 200 MG/20 ML (DIPRIVAN) VIAL IV ONE ×2 (08:00→15:03)
[2020-06-21] MEDS ORDERED: LACTATED RINGERS 1,000 ML IV ONE (08:01)
--- NOTE | 2020-06-21 10:08 | NUR ---
CM DISCHARGE PLANNING: Anticipate discharge to home today per Visited with patient about who is dr is outside of the hospital and what medical equipment company he uses. He reports that he sees Dr. Taylor with [facility] in [place], [place]. I called and left a message with his office to see what equipment company he uses and to inform them that he is discharging home today. Patient reports that he uses O2 @ 3LPM via NC continuous at home and he is currently on 4LPM via NC continuous here at the hospital. It appears per nursing notes that he had been using 3LPM but on 06/20 had a spell of SOA with O2 sat 88% and increase to 4LPM which he continues to be on. I will update Dr. Anglin to see if he needs an updated O2 study before he dismisses home.
--- NOTE | 2020-06-21 10:13 | Cardiology Progress Note ---
Subjective Date Seen by Provider: Jun 21, 2020 Time Seen by Provider: 10:12 Subjective/Events-last exam Patient is laying down in bed, feeling better, had EGD done today Review of Systems General: No Chills, No Night Sweats, No Fatigue, No Malaise, No Appetite, No Other HEENT: No Head Aches, No Visual Changes, No Eye Pain, No Ear Pain, No Dysphasia, No Sinus Congestion, No Post Nasal Drip, No Sore Throat, No Other Pulmonary: No Dyspnea, No Cough, No Pleuritic Chest Pain, No Other Cardiovascular: No: Chest Pain, Palpitations, Orthopnea, Paroxysmal Noc. Dyspnea, Edema, Lt Headedness, Other Objective-Cardiology Exam Last Set of Vital Signs Vital Signs 06/17/20 06/21/20 06/21/20 06/21/20 14:00 08:00 08:25 09:00 Temp 36.6 Pulse 69 Resp 20 B/P (MAP) 139/71 (93) Pulse Ox 95 O2 Delivery Nasal Cannula O2 Flow Rate 4.00 FiO2 4 Capillary Refill : Less Than 3 SecondsLess Than 3 Seconds I&O Intake and Output 06/21/20 00:00 Intake Total 1960 ml Output Total 1175 ml Balance 785 ml Intake Oral 1960 ml Output Urine Total 1175 ml # Voids 1 # Bowel Movements 1 General: Alert, Oriented X3, Cooperative HEENT: Atraumatic, PERRLA Neck: Supple, No JVD, No Thyromegaly Lungs: Normal Air Movement, Other (bilateral rhonchi) Heart: Regular Rate, Normal S1, Normal S2, Other (systolic murmur at the left sternal border) Abdomen: Normal Bowel Sounds, Soft, No Tenderness, No Hepatosplenomegaly, No Masses Extremities: No Clubbing, No Cyanosis, No Edema, Normal Pulses, No Tendernes s/Swelling Skin: No Rashes, No Breakdown, No Significant Lesion Neuro: Normal Speech, Normal Tone, Sensation Intact Psych/Mental Status: Mental Status NL, Mood NL Results Lab Laboratory Tests 06/21/20 05:20 A/P-Cardiology Admission Diagnosis Chest pain Non-ST elevation myocardial infarction Acute respiratory failure Acute congestive heart failure Assessment/Plan Chest pain, acute non-ST elevation myocardial infarction, mild elevation in t roponin level probably a combination of small vessel coronary artery disease and severe hypoxemia. Conservative management is recommended. Coronary artery disease, history of CABG, status post recent laser atherectomy and balloon angioplasty to the vein graft to the right coronary artery done in [facility] earlier this month. The patient will need to be back on aspirin and Plavix as soon as possible. Anemia, worsening H&H. Possible endoscopy. Continue to monitor Status post respiratory failure, improved. Feeling better. Congestive heart failure, acute on chronic left ventricular systolic dysfunction, improved. Feeling better. Severe aortic valve stenosis, severe mitral regurgitation with pulmonary hypertension, has been seen and followed with Dr. velez for possible aortic valve replacement surgery with possible mitral valve repair Paroxysmal atrial fibrillation, was on oral anticoagulation, restart oral anticoagulation when deemed reasonable by the surgeon Anemia, monitor H&H Acute renal insufficiency, history of chronic kidney disease stage III. Continue to monitor renal function Clinical Quality Measures DVT/VTE Risk/Contraindication: Risk Factor Score Per Nursin RFS Level Per Nursing on Admit: 4+=Very High BART MANN MD Jun 21, 2020 10:13
[2020-06-21] MEDS: ADVAIR HFA 115/21 MCG INHALER 8 GM IH SCH (10:15)
--- NOTE | 2020-06-21 10:37 | NUR ---
Patient uses [facility] for his medical equipment needs/O2. [facility] reports that he uses 2LPM continuous according to their orders. Notified for anticipated need of repeat home O2 study to see if he needs a higher liter flow for home use. Spoke with his daughter Monica Caal and she reports that she will pick him up when he is discharged and will bring his portable o2 E Tank for transport. She reports no further needs or concerns and voiced that she would like to have a survey because he has received excellent care from our facility. I let her know that if he is discharged I will give her a phone call and update her with finalized plan. [facility]:Vidya
[2020-06-21] MEDS: ISOSORBIDE MONONITRATE 30 MG (IMDUR) TAB PO SCH (10:43)
[2020-06-21] MEDS: hydrALAZINE (APRESOLINE) 25 MG TAB PO SCH (10:43)
[2020-06-21] MEDS: CARVEDILOL 12.5 MG (COREG) TABLET PO SCH (10:43)
[2020-06-21] MEDS: amLODIPine 10 MG (NORVASC) TAB PO SCH (10:44)
[2020-06-21] MEDS: PANTOPRAZOLE 40 MG (PROTONIX) TAB PO SCH (10:44)
[2020-06-21] MEDS: cefTRIAXone FOR IV USE 1,000 MG in WATER (STERILE) FOR INJECTION 10 ML IV SCH (10:59)
--- NOTE | 2020-06-21 11:38 | Physical Therapy Daily Note ---
PT Daily Note-Current Subjective Patient reluctantly agrees to PT. Currently on 4L O2 Mental Status Patient Orientation: Normal For Age Attachments: Oxygen (4L) Transfers SCALE: Activities may be completed with or without assistive devices. 0-Zehzhdxlfe-fuupjqw completes the activity by him/herself with no assistance from a helper. 5-Set-up or Clean-up Assistance-helper sets up or cleans up; patient completes activity. [place] assists only prior to or following the activity. 4-Supervision or Touching Assistance-helper provides verbal cues and/or touching/steadying and/or contact guard assistance as patient completes activity. Assistance may be provided throughout the activity or intermittently. 3-Partial/Moderate Assistance-helper does LESS THAN HALF the effort. [place] lifts, holds or supports trunk or limbs, but provides less than half the effort. 2-Substantial/Maximal Assistance-helper does MORE THAN HALF the effort. [place] lifts or holds trunk or limbs and provides more than half the effort. 4-Ywdrrzxia-iufzgo does ALL the effort. Patient does none of the effort to complete the activity. Or, the assistance of 2 or more helpers is required for the patient to complete the activity. If activity was not attempted, code reason: 7-Patient Refused. 9-Not Applicable-not attempted and the patient did not perform the activity before the current illness, exacerbation or injury. 10-Not Attempted due to Environmental Limitations-(lack of equipment, weather restraints, etc.). 88-Not Attempted due to Medical Conditions or Safety Concerns. Sit to Lying (QC): 6 Lying to Sitting/Side of Bed(Q: 6 Sit to Stand (QC): 6 Gait Training Does the Patient Walk?: Yes Distance: 175' Walk 10 feet (QC): 6 Walk 50 ft with 2 Turns(QC): 6 Walk 150 ft (QC): 6 Gait Assistive Device: FWW kyphotic/functional gait sequence Assessment Patient became lightheaded with SAO2 at 91% on 4L after ambulation. RN notified. PT Sausage Canner Goals Sausage Canner Goals PT Sausage Canner Goals Time Frame: Jun 26, 2020 Roll Left & Right (QC): 6 Sit to Lying (QC): 6 Lying-Sitting on Side/Bed(QC): 6 Sit to Stand (QC): 6 Chair/Uen-mb-Jmtqq Xfer(QC): 6 Toilet Transfer (QC): 6 Car Transfer (QC): 6 Does the Patient Walk: Yes Walk 10 feet (QC): 6 Walk 50ft with 2 Turns (QC): 6 Walk 150 ft (QC): 6 PT Plan Treatment/Plan Treatment Plan: Continue Plan of Care Treatment Plan: Education, Functional Activity [place], Functional Strength, Gait, Safety, Therapeutic Exercise Treatment Duration: Jun 26, 2020 Frequency: 6 times per week Estimated Hrs Per Day: .25 hour per day Time/GCodes Time In: 1101 Time Out: 1112 Total Billed Treatment Time: 11 Total Billed Treatment 1 visit FA 11 min OREN DIANA PT Jun 21, 2020 11:38
--- NOTE | 2020-06-21 12:47 | Anesthesia-General Post-Op ---
MAC Patient Condition Mental Status/LOC: Same as Preop Cardiovascular: Satisfactory Nausea/Vomiting: Absent Respiratory: Satisfactory Pain: Controlled Complications: Absent Post Op Complications Complications None Follow Up Care/Instructions Patient Instructions None needed. Anesthesiology Discharge Order Discharge Order Patient was seen this morning after the procedure and he was doing well, no complaints, stable vital signs, no apparent adverse anesthesia problems. RICHARD LOVE DO Jun 21, 2020 12:47
[2020-06-21] MEDS ORDERED: ASPI-1238 PO (13:32)
[2020-06-21] MEDS ORDERED: CEFD300C3 PO (13:37)
--- NOTE | 2020-06-21 13:50 | Discharge Summary ---
Discharge Summary Hospital Course Was the Problem List Reviewed?: Yes Problems/Dx: (1) Acute respiratory failure Status: Acute Qualifiers: Qualified Codes: J96.01 - Acute respiratory failure with hypoxia (2) CAD (coronary artery disease) Status: Chronic Qualifiers: Qualified Codes: I25.810 - Atherosclerosis of coronary artery bypass gra ft(s) without angina pectoris (3) CKD (chronic kidney disease) Status: Chronic Qualifiers: Qualified Codes: N18.4 - Chronic kidney disease, stage 4 (severe) (4) Counseling regarding end of life decision making Status: Acute (5) Essential (primary) hypertension Status: Chronic (6) NSTEMI (non-ST elevated myocardial infarction) Status: Acute Hospital Course Date of Admission: Jun 16, 2020 at 02:04 Admission Diagnosis : Acute on chronic respiratory failure with hypoxia Family Physician/Provider: Date of Discharge: 06/21/20 Discharge Diagnosis: Acute on chronic respiratory failure with hypoxia, COPD exacerbation, acute on chronic systolic heart failure, pneumonia Hospital Course: Jt Caal is an 85-year-old male who was admitted with acute on chronic respiratory failure with hypoxia. This was due to multiple etiologies. He was treated for an acute COPD exacerbation with steroids and inhalers. He was diuresed for an acute on chronic systolic heart failure exacerbation, likely due to severe aortic stenosis. He was treated for a bacterial pneumonia with IV Rocephin and was transitioned to oral Omnicef on discharge. He was tested for COVID-19 and was negative. He developed GI bleeding and his Eliquis was held. An upper endoscopy revealed no source for his bleeding. His hemoglobin stabilized. He was instructed to continue to hold his Eliquis on discharge. He was continued on aspirin and Plavix. He will need a repeat hemoglobin check later this week. He should follow-up with his primary care physician and about a week. They should have a discussion about if and when to resume his Eliquis. He was discharged home in stable condition. Labs and Pending Lab Test: Laboratory Tests 06/21/20 05:20: White Blood Count 7.2, Red Blood Count 2.23L, Hemoglobin 7.7L, Hematocrit 23L, Mean Corpuscular Volume 102H, Mean Corpuscular Hemoglobin 35H, Mean Corpuscular Hemoglobin Concent 34, Red Cell Distribution Width 14.1, Platelet Count 279, Mean Platelet Volume 9.7, Sodium Level 141, Potassium Level 3.8, Chloride Level 110H, Carbon Dioxide Level 21, Anion Gap 10, Blood Urea Nitrogen 37H, Creatinine 1.87H, Estimat Glomerular Filtration Rate 35, BUN/Creatinine Ratio 20, Glucose Level 101, Calcium Level 8.2L Microbiology 06/20/20 MRSA Screen - Final, Complete MRSA not isolated Home Meds Active Cefdinir 300 Mg Capsule 300 Mg PO BID 4 Days Aspirin EC (Aspirin) 81 Mg Tablet.dr 81 Mg PO DAILY 30 Days Reported Tylenol (Acetaminophen) 325 Mg Capsule 325-650 Mg PO Q8H PRN Nitroglycerin 0.4 Mg Tab.subl 0.4 Mg SL UD PRN Ventolin Hfa (Albuterol Sulfate) 1 Puff Puff 1 Puff INH Q6H PRN Eliquis (Apixaban) 2.5 Mg Tablet 2.5 Mg PO BID Levothyroxine Sodium 100 Mcg Tablet 100 Mcg PO DAILY Citalopram HBr (Citalopram Hydrobromide) 20 Mg Tablet 20 Mg PO DAILY Clopidogrel (Clopidogrel Bisulfate) 75 Mg Tablet 75 Mg PO DAILY Carvedilol 12.5 Mg Tablet 12.5 Mg PO BID Amlodipine Besylate 5 Mg Tablet 10 Mg PO DAILY TAKES 2 (5MG) TABS Nicotine Patch (Nicotine) 1 Each Patch.td24 1 Patch TD DAILY Isosorbide Mononitrate ER (Isosorbide Mononitrate) 30 Mg Tab.er.24h 30 Mg PO DAILY Hydralazine HCl 25 Mg Tablet 25 Mg PO TID Assessment/Pt Instructions Take medications as prescribed. Complete your course of antibiotics even if you're feeling better. Stop taking your Eliquis due to GI bleeding. Follow-up with your primary care physician in about a week to discuss possibly resuming this. He should have a repeat hemoglobin check this week. Return with worsening shortness of breath or review feel like you're getting worse. Discharge Planning: <30 minutes discharge planning Discharge Instructions Discharge Diet: Low Sodium Diet Activity as Tolerated: Yes Discharge Physical Examination Vital Signs Vital Signs Date Time Temp Pulse Resp B/P (MAP) Pulse Ox O2 Delivery O2 Flow Rate FiO2 06/21/20 11:26 67 13 93 30.00 06/21/20 10:15 Nasal Cannula 06/21/20 08:00 36.6 139/71 (93) 06/17/20 14:00 4 General Appearance: No Apparent Distress, WD/WN Respiratory: Lungs Clear, Normal Breath Sounds, No Respiratory Distress Cardiovascular: Regular Rate, Rhythm, No Edema, Systolic Murmur Gastrointestinal: Normal Bowel Sounds, Non Tender, Soft Extremity: Normal Inspection, Non Tender, No Pedal Edema Skin: Normal Color, Warm/Dry Neurologic/Psychiatric: Alert, Oriented x3, No Motor/Sensory Deficits, Normal Mood/Affect Allergies: Coded Allergies: Qkzmxjy-Pji-Rmi Reductase Inhibitor (Verified Allergy, Severe, Break soft tissue down, 06/16/20) Discharge Summary Date of Admission Jun 16, 2020 at 02:04 Date of Discharge Discharge Date: Jun 19, 2020 Discharge Time: 13:48 Admission Diagnosis Acute respiratory failure Discharge Diagnosis (1) Acute respiratory failure Status: Acute Qualifiers: Qualified Codes: J96.01 - Acute respiratory failure with hypoxia (2) CAD (coronary artery disease) Status: Chronic Qualifiers: Qualified Codes: I25.810 - Atherosclerosis of coronary artery bypass graft(s) without angina pectoris (3) CKD (chronic kidney disease) Status: Chronic Qualifiers: Qualified Codes: N18.4 - Chronic kidney disease, stage 4 (severe) (4) Counseling regarding end of life decision making Status: Acute (5) Essential (primary) hypertension Status: Chronic (6) NSTEMI (non-ST elevated myocardial infarction) Status: Acute (7) Acute on chronic respiratory failure with hypoxia Status: Acute (8) GI bleed Status: Acute Qualifiers: Qualified Codes: K92.2 - Gastrointestinal hemorrhage, unspecified (9) CHF exacerbation Status: Acute Qualifiers: Qualified Codes: I50.23 - Acute on chronic systolic (congestive) heart failure (10) COPD (chronic obstructive pulmonary disease) Status: Acute Qualifiers: Qualified Codes: J44.9 - Chronic obstructive pulmonary disease, unspecified Clinical Quality Measures DVT/VTE Risk/Contraindication: Risk Factor Score Per Nursin RFS Level Per Nursing on Admit: 4+=Very High RODRIGUEZ ZEE MD Jun 21, 2020 13:47
--- NOTE | 2020-06-21 14:22 | NUR ---
SPO2 DROPPED TO 80% ON ROOM AIR @ REST AFTER 2 MINUTES. PLACED PT ON O2 @ 5 LPM. SPO2 STAYED ABOVE 90%. Addendum: 06/21/20 at 1429 by [place] WEBER RT Amended: Links added.
--- NOTE | 2020-06-21 17:50 | NUR ---
JUANY ZEPEDA demonstrates understanding of discharge instructions and accurately returns instructions upon questioning. Copy of Post-Discharge Instructions and Medication Discharge Instructions given to PATIENT. JUANY ZEPEDA is able to manage continuing needs after discharge. Patients belongings returned to PATIENT. Skin dry and intact; no breakdown noted. Patient discharged from [facility]- on 06/21/2020 at 1750 . JUANY ZEPEDA left floor via WHEELCHAIR WITH PORTABLE O2 AT 5L, accompanied by STAFF TO MEET ADULT DAUGHTER. FOLLOW-UP APPOINTMENT SCHEDULED WITH PCP PER THIS RN, EDUCATION GIVEN ON NEW MEDICATIONS AND WHICH MEDICATIONS TO STOP.
--- NOTE | 2020-06-21 17:51 | NUR ---
Finalized discharge orders have been faxed to [facility] for new flow rate of O2 at 5LPM continuous and f/u appointment was made with Dr. Taylor's office by the primary care nurse Tiffanie ALEXANDER. No further interventions noted at this time. Daughter Monica has been kept informed throughout the day of plans for discharge and new orders. She denies any needs or concerns and voices that she will be here to pick her dad up for discharge to her home.
--- NOTE | 2020-06-22 04:14 | OPERATIVE REPORT ---
DATE OF SERVICE: 06/21/2020 PREOPERATIVE DIAGNOSES: Gastrointestinal bleed, anemia. POSTOPERATIVE DIAGNOSES: Small esophageal varices, clip in the body of the stomach. No active bleeding. SURGEON: Nicole Mobley DO ANESTHESIA: Per MDA. ESTIMATED BLOOD LOSS: None. COMPLICATIONS: None. INDICATIONS: The patient is an 85-year-old male with suspected GI bleed. He has been having dark stools and anemic. He understands risks and benefits of procedure and wished to proceed with procedure. Consent was signed on the chart. The patient was also recommended a colonoscopy, but the patient declined. DESCRIPTION OF PROCEDURE: The patient was taken to the endoscopy suite, placed in left lateral recumbent position. Timeout was performed. Scope was inserted in mouth, down the esophagus, stomach and into the duodenum without difficulty. There were no polyps, masses or ulcerations within the duodenum. No evidence of any bleeding. Scope was slowly retracted back into the stomach where it was further insufflated. No polyps, masses or ulcerations within the stomach and the antrum. Scope was then slowly retracted back in the body of the stomach. There was a clip that was adhered to the mucosa. No polyps, masses or ulcerations or active bleeding. Scope was retroflexed noting no other pathology. Scope was returned to its normal position, slowly withdrawn to the distal esophagus. There were some areas of the appearance of small esophageal varices. No polyps, masses or ulcerations. No active bleeding. Scope was slowly retracted back until completely removed. The patient tolerated procedure well without any complications and taken to recovery room in stable condition. RECOMMENDATIONS: The patient will continue on current medications. No active bleeding at this time. Job ID: [id number] DocumentID: [id number] Dictated Date: 06/21/2020 22:40:10 [employer]orter Date: 06/22/2020 04:13:11 Dictated By: NICOLE MOBLEY DO
[2020-06-22] MEDS ORDERED: ASPIRIN E.C. 81 MG (ECOTRIN) TAB PO SCH (09:00)
[2020-06-22] MEDS ORDERED: CLOPIDOGREL 75 MG (PLAVIX) TABLET PO SCH (09:00)
== END 2020-06-21 17:49 | disposition home or self-care (01) | DRG 280 ==
LOC: ICU 06-16 02:04 → 4TH 06-17 13:14
PROVIDERS: ADMIT Internal Medicine; ATTEND Internal Medicine
PROC: 5A09457 Assistance with Respiratory Ventilation, 24-96 Consecutive Hours, Continuous Positive Airway Pressure (ICD-10-PCS; 2020-06-16)
PROC: 0DJ08ZZ Inspection of Upper Intestinal Tract, Via Natural or Artificial Opening Endoscopic (ICD-10-PCS; principal; 2020-06-21 12:10)
DX: I13.0 Hypertensive heart and chronic kidney disease with heart failure and stage 1 through stage 4 chronic kidney disease, or unspecified chronic kidney disease (principal); I50.23 Acute on chronic systolic (congestive) heart failure; I21.4 Non-ST elevation (NSTEMI) myocardial infarction; J96.21 Acute and chronic respiratory failure with hypoxia; J15.9 Unspecified bacterial pneumonia; J44.1 Chronic obstructive pulmonary disease with (acute) exacerbation; N18.4 Chronic kidney disease, stage 4 (severe); K92.2 Gastrointestinal hemorrhage, unspecified; I85.00 Esophageal varices without bleeding; I48.0 Paroxysmal atrial fibrillation; F17.210 Nicotine dependence, cigarettes, uncomplicated; I08.0 Rheumatic disorders of both mitral and aortic valves; I27.20 Pulmonary hypertension, unspecified; I25.10 Atherosclerotic heart disease of native coronary artery without angina pectoris; Z20.828 Contact with and (suspected) exposure to other viral communicable diseases; E78.5 Hyperlipidemia, unspecified; Z99.81 Dependence on supplemental oxygen; Z95.1 Presence of aortocoronary bypass graft; Z95.5 Presence of coronary angioplasty implant and graft; Z79.01 Long term (current) use of anticoagulants; N28.9 Disorder of kidney and ureter, unspecified; D64.9 Anemia, unspecified
CPT/HCPCS: 36415; 71045; 80048; 80053; 81000; 82274; 82805; 83735; 83880; 84100; 84145; 84484; 85025; 85027; 87081; 87449; 87635; 87804; 87899; 93005; 93306; 94640; 94660; 94760; 94761